=== PATIENT | female | born 1930 | race Caucasian/White ===

== ENCOUNTER → 2017-10-28 | Outpatient (CLI) | payer OTHER ==
[~2017-10-28] MED LIST: ADVIL100 M2 PO; APAP/CODEINE ELI5 M1; BACTRIM DS TAB1 EACH PO; CENTRUM SILVER1 EAC4 PO; PHENERGAN 25 MG25 MG PO; PREMARIN0.625 MG PO; STOOL SOFTENER100 MG PO; TRAMADOL 50 MG50 MG PO; TYLENOL325 MG PO; ULTRAM ER100 MG PO; VALIUM2 MG PO; ZOFRAN 4 MG ORAL4 MG PO
== END ==
LOC: ULTRA 14:38
DX: I70.213 Atherosclerosis of native arteries of extremities with intermittent claudication, bilateral legs (principal)

== ENCOUNTER 2018-10-15 13:08 | Inpatient (IN) | payer OTHER ==
[~2018-10-15] VITALS: Ht 160 cm; Wt 56.2 kg
[2018-10-15 13:08] VITALS: BP 131/78
[2018-10-15] MEDS ORDERED: ASPIR 8181 MG PO (13:16)
[2018-10-15] MEDS ORDERED: LIPITOR10 MG PO (13:17)
[2018-10-15 14:04] LABS: ABSOLUTE NEUTROPHILS 8.2 thou/uL (1.4-8.2); BASOPHILS 0.7 % (0.0-2.0); EOSINOPHILS 1.4 % (0.0-3.0); MCH 34.2 pg (26.0-34.0); MCV 100.7 fL (80.0-100.0); MONOCYTES 9.3 % (1.0-8.0); PLATELET COUNT 238 thou/uL (150-400); POLYS 78.6 % (36.0-66.0); RBC 4.37 mil/uL (4.20-5.00); RDW 13.1 % (10.5-14.5); WBC 10.5 thou/uL (4.0-11.0)
[2018-10-15 14:10] LABS: ANION GAP 9 mmol/L (7-16); BUN 14 mg/dL (7-18); CALCIUM 9.2 mg/dL (8.5-10.1); CHLORIDE 103 mmol/L (98-107); CO2 28 mmol/L (21-32); CREATININE 0.9 mg/dL (0.6-1.0); GLUCOSE 170 mg/dL (74-106); POTASSIUM 3.3 mmol/L (3.5-5.1); SODIUM 140 mmol/L (136-145)
[2018-10-15 14:19] LABS: ALBUMIN 3.3 g/dL (3.4-5.0); SGOT 18 U/L (15-37); SGPT 11 U/L (30-65); TOTAL BILIRUBIN 0.4 mg/dL (<0.1-1.0); TOTAL PROTEIN 7.1 g/dL (6.4-8.2); TROPONIN-I <0.06 ng/mL (<0.06)
[2018-10-15 15:23] VITALS: BP 131/78
[2018-10-15 16:11] VITALS: BP 133/76
[2018-10-15 16:15] LABS: URINE BILIRUBIN NEGATIVE (Negative); URINE CLARITY SLIGHTLY CLOUDY; URINE COLOR YELLOW; URINE GLUCOSE-RANDOM* NEGATIVE (Negative); URINE KETONES 1+ (Negative); URINE PROTEIN (DIPSTICK) 2+ (Negative); URINE SPECIFIC GRAVITY > 1.030 (1.005-1.035)
[2018-10-15 16:16] LABS: URINE BLOOD 3+ (Negative); URINE LEUKOCYTES-REFLEX 1+ (Negative); URINE NITRITE-REFLEX NEGATIVE (Negative); URINE UROBILINOGEN 0.2 E.U./dl (0.2-1.0)
[2018-10-15 16:22] LABS: BACTERIA-REFLEX >30 Many /HPF (None Seen); CASTS None Seen /LPF (None Seen); CRYSTALS None Seen /LPF (None Seen); SQUAMOUS 0-3 Few /LPF (0-3); URINE RBC 3-10 Few /HPF (0-2); URINE WBC-REFLEX 6-15 Few /HPF (0-5); YEAST-REFLEX Present (None Seen)
[2018-10-15 16:24] VITALS: BP 127/66
--- NOTE | 2018-10-15 18:31 | NUR ---
88 YO FEMALE ADMITTED TO 432 BY CART FROM ER. A&OX4, IV INTACT IN R AC. L SIDE FACE ABOVE EYE BROW HAS 9 SUTURES WITH SWELLING AND BRUISING. AMBULATES WITH ASSIST X1. PT ORIENTED TO ROOM/CALL LIGHT. PT TOLERATED DINNER TRAY, DENIES ANY NEED FOR PAIN MEDS. IV INFUSING CONT. FLUIDS AND ABX AT THIS TIME.
[2018-10-15 20:05] VITALS: BP 134/61
[2018-10-16 03:56] LABS: ALBUMIN 2.7 g/dL (3.4-5.0); CALCIUM 8.4 mg/dL (8.5-10.1); CREATININE 0.7 mg/dL (0.6-1.0); MAGNESIUM 1.7 mg/dL (1.8-2.4); POTASSIUM 3.2 mmol/L (3.5-5.1); TOTAL BILIRUBIN 0.3 mg/dL (<0.1-1.0); TOTAL PROTEIN 6.1 g/dL (6.4-8.2)
[2018-10-16 03:57] LABS: HEMATOCRIT 40.2 % (37.0-47.0); HEMOGLOBIN 13.2 gm/dL (12.0-15.0); MCH 33.6 pg (26.0-34.0); MCHC 32.9 g/dL (28.0-37.0); MCV 102.2 fL (80.0-100.0); RBC 3.93 mil/uL (4.20-5.00); WBC 8.6 thou/uL (4.0-11.0)
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
[2018-10-16 08:00] VITALS: BP 142/67
--- NOTE | 2018-10-16 08:48 | EKG ---
[place] [address] [facility] [place] [address] ELECTROCARDIOGRAM REPORT Name: MARITO CHEATHAM Room #: 432-P ADM IN M.R.#: [id number] Admission: 10/15/18 Attend Phys: Manuelito Michaels MD Discharge: Date of : 30 Report #: [id number] THIS REPORT FOR: //name// [facility] ED Test Date: 2018-10-15 Test Time: 13:50:13 Pat Name: MARITO CHEATHAM Department: Room: 432 Gender: F Supervisor Braiding: sylwia : 1930 Requested By: Swapna Vela Order Number: [id number] MD: Ramón Badillo Measurements Intervals [place] Rate: 103 P: 63 NE: 142 QRS: -62 QRSD: 98 T: 99 QT: 332 QTc: 435 Interpretive Statements Sinus tachycardia Atrial premature complexes Left anterior fascicular block Early R-wave progression Nonspecific T wave abnormality Compared to ECG 02/08/2015 07:58:13 no significant change was found Electronically Signed On 10-16-2018 8:48:21 MECHANICAL OXIDIZER by Ramón Badillo [email or web address] <ELECTRONICALLY SIGNED> By: Ramón Badillo MD, [facility] 10/16/18 0848 1350 1350 Ramón Badillo MD, [facility] /EPI
--- NOTE | 2018-10-16 15:22 | NUR ---
ASSESSMENT: CM REVIEWED CHART AND MET WITH PATIENT AND HER NEICE AT THE BEDSIDE. PT REPORTS SHE LIVES IN A HOUSE ALONE. PT REPORTS SHE IS VERY INDEPENDENT AND HAD BEEN WORKING OUT FOR YEARS. PT REPORTS SHE LIVES IN A HOUSE ALONE. PT REPORTS HAVING 2 STEPS TO ENTER THE HOME WITH NO HANDRAILS. PT REPORTS ONCE INSIDE SHE DOES NOT HAVE TO USE STEPS BUT DOES HAVE STEPS TO THE BASEMENT WHICH SHE DOES NOT GO DOWN TO. PT REPORTS HAVING A CANE AT HOME WELL A ROLLATER WALKER. PT REPORTS SHE HAS HAD [facility] IN THE PAST BUT NOT CURRENTLY. PT REPORTS SHE HAS NOT BEEN TO A SNF/REHAB. CM DISCUSSED ROLE AND RECOMMENDATION FOR POST ACUTE CARE. PT STATES HER HAD BEEN TO [facility] IN THE PAST AND WAS POSSIBLY INTERESTED IN THAT OR ACUTE REHAB. CM DISCUSSED HOW WE WOULD HAVE TO GET APPROVAL FROM INSURANCE. CM NOTIFIED ATTENDING THAT PATIENT IS INTERSTED IN ACUTE REHAB. CM WILL CONTINUE TO FOLLOW TO ASSIST NEEDED.
[2018-10-16 16:25] VITALS: BP 117/80
--- NOTE | 2018-10-16 18:17 | NUR ---
ASSUMED CARE OF PT AT 0700. ASSESSMENT COMPLETED. A&O,X4. NEURO CHECKS INTACT. DENIES N/V/D. C/O CHRONIC PAIN, PAIN MEDS GIVEN ORDERED. STITCHES INTACT LEFT EYEBROW, CHEEK ABRASION. NIECE AT BEDSIDE EARLIER TODAY. PT SLEPT MOST OF THE DAY, ACCORDING TO PT SHE USUALLY SLEEPS DURING THE DAY AT HOME. NO OTHER CHANGE IN STATUS.
[2018-10-16 19:46] VITALS: BP 141/70
[2018-10-17 04:40] VITALS: BP 116/63
--- NOTE | 2018-10-17 05:19 | NUR ---
ASSUMED PT CARE 1899. PT ALERT AND ORIENTED. IV DRESSING C/D/I, NO SIGNS OF INFILTRATION. STICHES OVER L EYE, WELL APPROXIMATED. BRUSINING TO L CHEEK. PT COMPLAINS OF CHRONIC PAIN, MANAGED WITH MEDICATION. PT ANXIOUS ABOUT GOIGN HOME, CONCERED SHE IS TOO WEAK. WILL CONTINUEPOC UNTIL EOS.
[2018-10-17 05:44] LABS: CALCIUM 8.1 mg/dL (8.5-10.1); CREATININE 0.6 mg/dL (0.6-1.0); MAGNESIUM 2.2 mg/dL (1.8-2.4); POTASSIUM 4.6 mmol/L (3.5-5.1)
[2018-10-17 07:45] VITALS: BP 126/59
--- NOTE | 2018-10-17 15:21 | NUR ---
ASSUMED CARE OF PT AT 0700. ASSESSMENT COMPLETED. A&O,X4. C/O GENERALIZED CHRONIC AND OVERALL WEAKNESS, PAIN MEDS GIVEN ORDERED. DENIES ANY OTHER CONCERNS. PT SLEEPS MOST OF THE DAY. PT/OT SAW PT, 1X ASSIST NEEDED. PT STATES SHE DOES NOT FEEL SAFE GOING HOME, LOOKING AT REHAB CHOICES. WILL CONTINUE TO MONITOR. PT IN STABLE CONDITION.
[2018-10-17 15:52] VITALS: BP 138/69
[2018-10-17 20:00] VITALS: BP 127/68
--- NOTE | 2018-10-18 04:21 | NUR ---
A/O, showing some anxiety, cooperative; c/o pain, pain medicationg given and worked; vss, afebrile, lab reviewd, will keep monitoring.
[2018-10-18 04:30] VITALS: BP 130/58
[2018-10-18 05:47] LABS: CALCIUM 8.2 mg/dL (8.5-10.1); CREATININE 0.7 mg/dL (0.6-1.0); POTASSIUM 4.2 mmol/L (3.5-5.1)
[2018-10-18 07:56] VITALS: BP 133/70
--- NOTE | 2018-10-18 14:58 | NUR ---
NOTIFIED DR CRUZ OF DENIAL FOR 5N AND HE WISHES TO DO A P-P. CALLED TO SCHEDULE WITH [facility] AND DR JOHNSON WILL CALL DR CRUZ BETWEEN [phone] TODAY. REF # [id number]. S/W PT TO ALERT OF THIS AND DISCUSSED SKILLED FACILITIES AND SHE IS INTERESTED IN [facility] IF 5N IS STILL DENIED. ASKED DC SCREEDMAN TO FAX REFERRAL TO [facility].
--- NOTE | 2018-10-18 15:09 | NUR ---
GROUNDS SUPERVISOR RECEIVED INSURANCE DENIAL FOR ACUTE REHAB STAY. PER ANA, PEER TO PEER CAN BE SCHEDULED BY CALLING . PEER TO PEER MUST BE SCHEDULED BY AT 1:00 PM STANDARD TIME. STRIKER OUT INFORMED.
--- NOTE | 2018-10-18 15:18 | NUR ---
FAXED REFERRAL TO [facility] SPOKE WITH EZIO IN ADM. SHE RECEIVED REFERRAL AND WILL REVIEW. DCP TO FOLLOW.
[2018-10-18 17:39] VITALS: BP 162/60
--- NOTE | 2018-10-18 18:16 | NUR ---
ASSUMED CARE OF PT AT 0700. ASSESSMENT COMPLETED. A&O,X4. C/O NECK PAIN, PAIN MEDS GIVEN ORDERED. HIGH FALL RISK DUE TO RECENT FALL AND WEAKNESS, BED ALARM ON, YELLOW SOCKS, AND WRISTBAND. DENIES ANY OTHER CONCERNS. VOIDING PER BEDSIDE COMMODE X1 ASSIST. PT BECAME CONFUSED AND FORGETFUL THIS EVENING. RIGHT FOREARM IV INFILTRATED, NEW RIGHT WRIST IV PLACED. PT TRANSFERED TO ROOM 224 VIA WHEELCHAIR IN STABLE CONDITION. BELONGINGS - CLOTHES, FERGUSON SENT WITH PT. IV ABX SENT WITH PT FOR NURSE TO HANG. PT LEFT AT 18:16 VIA TRANSPORTERS. FAMILY AWARE.
[2018-10-18 18:45] VITALS: BP 125/53
--- NOTE | 2018-10-18 19:23 | NUR ---
PATIENT TRANSFERRED FROM [facility], REPORT FROM [facility]/RN. PATIENT ALERT AND CAN BE FORGETFUL. PATIENT UP WITH ASSIST X 1 WITH CANE, DUE TO WEAKNESS FORM FALL. PATIENT HAS FACIAL CONTUSIONS WITH STITCHES LEFT EYE BROW. PATIENT C/O PAIN WITH ACTIVITY, 6/10 UPON ARRIVAL TO THE UNIT. WILL CONTINUE TO MONITOR.
[2018-10-18 19:50] VITALS: BP 137/88
--- NOTE | 2018-10-19 05:44 | NUR ---
Patient remains A&O to person, place and time w/ confusion. Swallows meds whole w/o difficulty. Remains cont. B&B; needs asst x 1 for ADLs/toileting needs. Remains on IVABT/UTI; no adverse reactions noted. 22 GA noted/intact to R wrist; infused ABT/flushed w/o difficulty. Stitches noted C/D/I to L eyebrow. Purplish - yellow bruising noted to L cheek r/t to recent fall at home. Non - productive cough noted. Patient remains non - compliant w/ utilizing call light for assistance, w/ toileting needs/transfers. Patient has no c/o pain or discomfort. No s/s of acute distress noted. PO fluids encouraged. Patient in bed resting w/ bed in low position and call light/desired belongings within reach. Will contiue to monitor.
[2018-10-19 08:30] VITALS: BP 122/77
--- NOTE | 2018-10-19 10:15 | NUR ---
MICHELLE reviewed chart and spoke with nursing. [facility] and is progressing towards goals for discharge. Insurance denied inpt acute rehab after peer to peer review. Referral sent to [facility]. conservation planner faxed updated clinical/therapy info and spoke with admissions. MICHELLE spoke with pt's niece, Alivia ([phone]), via phone to provide update. Alivia will update pt's son in [place]. Alivia is agreeable with discharge plan. Chart copy ordered. MICHELLE is following to assist as needed with discharge planning.
--- NOTE | 2018-10-19 11:25 | NUR ---
PATIENT CARE WAS ASSUMED AT 0715.PATIENT IS ALERT AND ORIENTED X4.PATIENT HAS SOME CONFUSION AT TIMES.PATIENT HAS NO PAIN AT THIS TIME.PATIENT CAN BE IMPULSIVE AT TIME WILL KEEP BED ALARM AND CHAIR ALARM ON WHEN UP.PATIENT'S VITALS ARE STABLE.IV IS INTACT, AND PATENT.CALL LIGHT,PHONE, AND PERSONAL BELONGINGS ARE WITHIN REACH.WILL CONTINUE TO MONITOR PATIENT.
[2018-10-19] MEDS ORDERED: LEVAQUIN 750 M750 MG PO (14:09)
[2018-10-19] MEDS ORDERED: TRAMADOL 50 MG50 MG PO (14:11)
[2018-10-19] MEDS ORDERED: IPRAT-ALBUT 0.5-3 ML INH (14:11)
[2018-10-19] MEDS ORDERED: ROBITUSSIN100 MG/53 PO (14:13)
--- NOTE | 2018-10-19 14:54 | NUR ---
DISCHARGE ORDERS RECEIVED. PATIENT DISCHARGING TO [facility]. CHART COPIED PER MARKET RISK SPECIALIST. ORDERS FAXED TO [facility], VERIFIED RECEIVED. WHEELCHAIR TRANSPORT SET FOR 1545 HOURS. RUPERTO GARCIA, NOTIFIED OF DISCHARGE PLAN AND TIME OF TRANSPORT. UNIT RN NOTIFIED AND CONTACT NUMBER PROVIDED FOR REPORT. UNIT CM/SW AWARE.
--- NOTE | 2018-10-19 17:09 | NUR ---
PATIENT WAS DISCHARGE TO GO TO [facility].PATIENT'S FAMILY IS AWARE OF TRANSFER BUT NOT OF THE TIME.PT IS IN STABLE CONDITION.IV WAS TAKEN OUT.PATIENT HAS TRANSPORTATION TO SNF VIA [facility].PATIENT HAS ALL PERSONAL BELONGINGS, AND PAPERWORK FOR D/C.REPORT WAS CALLED IN TO THE NURSE FOR [facility]
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
--- NOTE | 2018-10-24 23:38 | H ---
[facility] [place] [address] HISTORY AND PHYSICAL Name: CHEATHAMMARITO ANN Room #: 224-P [facility] IN M.R.#: [id number] Admission: 10/15/18 Attend Phys: Manuelito Michaels MD Discharge: 10/19/18 Date of : 30 Report #: [id number] THIS REPORT FOR: //name// CC: Manuelito Michaels DATE OF SERVICE: 10/15/2018 CHIEF COMPLAINT: Fall with closed head injury. HISTORY OF PRESENT ILLNESS: The patient reported that she had been developing a cold for several days and had not been feeling well. She was walking across a carpet in her den when she tripped and fell hitting the head on her carpet and that her eyeglasses cut her face. She reports generalized weakness, leg weakness, productive cough and runny nose from her cold. She denies chest pain, shortness of breath or syncope before the fall. She assumes that she tripped, because she does not remember any specific event. She just remembers falling toward the carpeted floor. She came to the Emergency Room where a 3 cm laceration over the left eyebrow was sutured and evaluation performed. She was too weak to get up and walk while in the Emergency Room. She was too unsteady on her feet to attempt walking. She was brought to the hospital by the EMS service. She has not had any recent difficulties with falls or weakness. She has a history of breast cancer twice, one in each breast, treated with simple lumpectomies. She has chronic back pain controlled with tramadol, right knee surgery in 06/1996, generalized arthritis, hysterectomy and elevated lipids. MEDICATIONS: Chronic tramadol 4 pills any average day controls her chronic back pain, this dose has remained unchanged for several years. Atorvastatin 10 mg daily for elevated cholesterol. She uses Tretinoin cream, thin film on her face several times weekly. In the past, she has used diclofenac gel for pain. She tried several different doses of estrogen replacement over the last several months and is most comfortable on Premarin 0.625 mg that she has taken ever since her hysterectomy perhaps 50 years ago. ALLERGIES: SHE LISTED METHYLPREDNISOLONE A CAUSE OF HER BALANCE AND FALLS ON 11/14/2014 AND A RASH FROM AMOXICILLIN/CLAVULANIC ACID THE SAME DAY. SOCIAL HISTORY: She lives alone in her own home. She does not drink nor smoke. She does have a "life alert" emergency system that she activated to call the paramedics. [address] [address] HISTORY AND PHYSICAL Name: MARITO CHEATHAM WILLIS Room #: 224-P DIS IN .R.#: [id number] Admission: 10/15/18 Attend Phys: Manuelito Michaels MD Discharge: 10/19/18 Date of : 30 Report #: [id number] She wishes a full code blue. REVIEW OF SYSTEMS: She has had cough with productive sputum, runny nose and malaise for several days as well as generalized weakness. She has not been eating or drinking as well as usual. Her only complaint of pain from the fall is the left side of her face and no pain on either the left or the right side of her body. She denies shortness of breath or chest pain or blackout spell preceding the fall. There is no nausea, vomiting, diarrhea or constipation. She denies urinary frequency or burning or dysuria. She denied unusual back pain, joint pain or muscle pain from the fall. She does have chronic back pain and has been out of her tramadol prescription for 3 or 4 days. She has pain from the injury to the left side of her face, but no other headache. She reports that the vision in both eyes is intact and unchanged from the fall. OBJECTIVE: GENERAL: Exam shows an 88-year-old white female appearing 10 years younger than her stated age. She is awake, alert and oriented. HEENT: PERRLA and extraocular movements are intact. Palpation of the nasal bones, cheek bones and the orbital rims shows no abnormal movement or fractures present. There is a recently sutured laceration over the left eyebrow and abrasions around the left side of the face. NECK: Negative and supple. Skeletal survey by palpation shows no unusual tenderness or discomfort. LUNGS: Clear. CARDIOVASCULAR: Heart tones are normal. ABDOMEN: Soft and nontender without hepatosplenomegaly or masses. EXTREMITIES: There is no edema present. NEUROLOGIC: Screening neurological examination is intact. I did not attempt to get her up and walking. LABORATORY DATA: Urinalysis is abnormal with white blood cells, red blood cells and bacteria. Potassium is low at 3.3. Albumin is low at 3.3. WBCs are normal at 10.5 thousand and hemoglobin is 15.0, which is hemoconcentrated compared to several years ago. MCV is 100.7, which is close to baseline for her. Urine is concentrated with a specific gravity greater than 1.030. Chest x-ray is unremarkable. CT of the head was negative and no significant abnormalities were seen in the visualized portions of the facial bones. ASSESSMENT: 1. Weakness that led to a fall. 2. Volume depletion. 3. Hypokalemia. 4. Left eyebrow laceration and facial contusions. 5. Unstable balance. [facility] [address] [place] [address] HISTORY AND PHYSICAL Name: MARITO CHEATHAM Room #: 224-P [facility] IN [facility].#: [id number] Admission: 10/15/18 Attend Phys: Manuelito Michaels MD Discharge: 10/19/18 Date of : 30 Report #: [id number] 6. Generalized weakness. 7. Abnormal UA / UTI 8. Other medical problems as in the history and physical. PLAN: The patient is unable to go home, she is unable to walk. She will be given intravenous fluids to correct her intravascular volume deficit. She will be given potassium to replace her low potassium. Serial neuro checks will be obtained. Physical therapy and occupational therapy consultations will be obtained. general sales manager assistance will be obtained. A CT scan of the facial bones will be performed. Empiric antibiotics started for the abnormal urinalysis while the culture is pending. She wishes a full code blue. <ELECTRONICALLY SIGNED> By: Manuelito Michaels MD 10/24/18 2338 2041 2136 Manuelito Michaels MD /nt
== END 2018-10-19 17:19 | DRG 987 ==
LOC: ER 13:08 → EROBS 15:26 → 4E 15:26 → SICU 10-18 18:31
PROVIDERS: Nurse Practitioner Family; ADMIT Internal Medicine
PROC: 0JQ10ZZ Repair Face Subcutaneous Tissue and Fascia, Open Approach (ICD-10-PCS; principal; 2018-10-15)
DX: S01.112A Laceration without foreign body of left eyelid and periocular area, initial encounter (principal); E43 Unspecified severe protein-calorie malnutrition; N39.0 Urinary tract infection, site not specified; M19.90 Unspecified osteoarthritis, unspecified site; S09.90XA Unspecified injury of head, initial encounter; E86.9 Volume depletion, unspecified; Z60.2 Problems related to living alone; E87.6 Hypokalemia; J32.9 Chronic sinusitis, unspecified; E83.42 Hypomagnesemia; J20.8 Acute bronchitis due to other specified organisms; B96.20 Unspecified Escherichia coli [E. coli] as the cause of diseases classified elsewhere; Z90.710 Acquired absence of both cervix and uterus; Z88.8 Allergy status to other drugs, medicaments and biological substances; Z88.1 Allergy status to other antibiotic agents; Z68.22 Body mass index [BMI] 22.0-22.9, adult; Z85.3 Personal history of malignant neoplasm of breast; Z79.82 Long term (current) use of aspirin; Z79.899 Other long term (current) drug therapy; Z23 Encounter for immunization; W01.0XXA Fall on same level from slipping, tripping and stumbling without subsequent striking against object, initial encounter; Y93.89 Activity, other specified; Y92.89 Other specified places as the place of occurrence of the external cause; Y99.8 Other external cause status
CPT/HCPCS: 10084; 15002

== ENCOUNTER 2018-10-24 06:52 | Inpatient (IN) | payer OTHER ==
[~2018-10-24] VITALS: Ht 160 cm; Wt 63.5 kg
--- NOTE | ~2018-10-24 | H ---
[facility] [place] [address] HISTORY AND PHYSICAL Name: MARITO CHEATHAM WILLIS Room #: 463-P ADM IN M.R.#: [id number] Admission: 10/24/18 Attend Phys: Manuelito Michaels MD Discharge: Date of : 30 Report #: [id number] THIS REPORT FOR: //name// CC: Jewell Michaels DATE OF SERVICE: 10/24/2018 CHIEF COMPLAINT: Swelling in the tongue and sore throat. HISTORY OF PRESENT ILLNESS: Information is obtained from the patient and from the Emergency Room physician's hospital record. The patient reports beginning to have a sore throat approximately 2 weeks ago. She fell at home on 10/15/2018, hitting a carpeted floor with the left side of her face in an unprotected fall with some characteristics of profound instantaneous syncope with profound instantaneous loss of consciousness. She required suturing of laceration over her eyebrow and evaluations as detailed in the dictated discharge summary and [facility]. At the jail facility, she continued to have sore throat, but that her tongue began to swell last night prior to coming to the hospital early this morning . She noticed that her neck was painful with movement and that her speech was altered with the tongue swelling. Moving her neck caused her neck to hurt. She was able to breathe but reports that breathing is more difficult than usual. [facility] her to the [facility] Room where the emergency room physician found on exam that her tongue was indeed swollen, although only mild to moderately so. There was mild trismus with tightness of the muscles of mastication. Mild uveitis present and the rest of her HEENT exam was normal. Soft tissue technique CT scanning of the neck with contrast was significant and that the tongue was normal but there was bilateral ethmoid sinus infection, sinusitis with air fluid levels. Emergency admission to the hospital is indicated. Treatment with intravenous corticosteroids was initiated in the Emergency Room after discussion with the ENT physician, Dr. Gurrola. The patient feels that it was her tramadol that caused swelling in her throat and swelling of her tongue. She noted that after having fallen and hit her face on Sep, she has been taking more than her usual. She initially used to taking 4 or 6 per day. She had been taking more up until her tongue started to swell. She says tramadol tablets were of different color and size and shape than what she is used to. Medications: At the jail [facility], she has been taking the following medications: Lactobacillus 1 capsule once daily, aspirin 81 mg daily, conjugated estrogen 0.625 mg daily, guaifenesin cough syrup as needed, ipratropium, albuterol by nebulizer every 4 hours as needed for shortness of breath and wheezing, [address] [address] HISTORY AND PHYSICAL Name: MARITO CHEATHAM WILLIS Room #: 463-P ADM IN M.R.#: [id number] Admission: 10/24/18 Attend Phys: Manuelito Michaels MD Discharge: Date of : 30 Report #: [id number] ipratropium/albuterol 1 vial every morning and at bedtime for breathing, levofloxacin 750 mg by mouth once daily for UTI, lidocaine patch to the affected areas every morning and at bedtime, atorvastatin 10 mg at bedtime for elevated cholesterol, multiple vitamin tablet daily, tramadol 50 mg or 100 mg every 4 hours as needed for pain, Tylenol 325 mg 1 by mouth every 4 hours as needed for mild pain or elevated temperature. ALLERGIES: METHYLPREDNISOLONE pack in 2013 has led to dizziness persisting ever since then she reports. She is also allergic to AUGMENTIN taken about the same time. SOCIAL HISTORY: She lives alone in her own home. She does not drink nor smoke. Her friends report that she seems to be having more difficulties in adequately taking care of herself at home. A complete review of systems is negative except for the HPI above in the HPI per recent difficulties. PHYSICAL EXAMINATION: GENERAL: She is awake and alert in the hospital bed at the time of my examination. HEENT: There are a few white patches, not quite characteristic for thrush. The right lower lip has a crust, as if a herpes lesion had recently healed. The uvula is slightly swollen and mildly enlarged. She is able to eat, drink and swallow without difficulty. Posterior pharynx is normal in size and shape. The tongue is not really enlarged at the time of my examination. The laceration of the left eyebrow is healing. The rest of the HEENT exam is unremarkable. CT scan shows acute sinusitis of the ethmoid and sphenoid sinuses. Also cervical spine disease and scoliosis. WBCs are 15,000 with a left shift showing a stress response, or to an infection. IMPRESSION: 1. The patient had difficulty in swallowing, and the tongue was enlarged in the ER along with some tightening of the muscles of mastication. Angioedema was not described. The condition has responded to IV decadron. The differential favors reaction to a medication, but could be sinusitis or perhaps thrush or viral pharyngitis. 2. Sinusitis, acute. 3. She showed sinus tachycardia during the exam. 4. Recent fall with eyebrow laceration and left face bruising 5. Recently having signs of not doing well at home. 6. Recent UTI treated at the [facility] with 750 mg levofloxacin where 250 mg is adequate. [facility] [place] [address] HISTORY AND PHYSICAL Name: MARITO CHEATHAM WILLIS Room #: 463-P ADM IN M.R.#: [id number] Admission: 10/24/18 Attend Phys: Manuelito Michaels MD Discharge: Date of : 30 Report #: [id number] 7. Chronic back pain well managed with 4 tramadol daily in the past. 8. Degenerative spine disease. She is being treated with intravenous Decadron and antihistamines. She desires a full code blue. She was examined 10 hours after she came to the Emergency Room and has been steadily improving since then. The plan is to return to the SNF. An alternative to tramadol for back pain is needed. The laceration above her eyebrow looks to be healing satisfactorily and removing of those sutures will be addressed. By: 0020 0117 Manuelito Michaels MD /nt
[~2018-10-24 06:52] MED LIST changes: +ASPIR 8181 MG PO; +IPRAT-ALBUT 0.5-3 ML INH; +LEVAQUIN 750 M750 MG PO; +LIPITOR10 MG PO; +ROBITUSSIN100 MG/53 PO
[2018-10-24 06:55] VITALS: BP 133/88
[2018-10-24 07:19] LABS: ABSOLUTE NEUTROPHILS 12.8 thou/uL (1.4-8.2); BASOPHILS 0.9 % (0.0-2.0); EOSINOPHILS 0.1 % (0.0-3.0); HEMATOCRIT 41.6 % (37.0-47.0); HEMOGLOBIN 14.5 gm/dL (12.0-15.0); LYMPHOCYTES 7.9 % (24.0-44.0); MCH 34.4 pg (26.0-34.0); MCHC 34.9 g/dL (28.0-37.0); MCV 98.5 fL (80.0-100.0); MONOCYTES 7.3 % (1.0-8.0); PLATELET COUNT 315 thou/uL (150-400); POLYS 83.8 % (36.0-66.0); RBC 4.23 mil/uL (4.20-5.00); RDW 12.6 % (10.5-14.5); WBC 15.3 thou/uL (4.0-11.0)
[2018-10-24 07:28] LABS: ANION GAP 11 mmol/L (7-16); BUN 19 mg/dL (7-18); CALCIUM 9.7 mg/dL (8.5-10.1); CHLORIDE 97 mmol/L (98-107); CO2 28 mmol/L (21-32); CREATININE 0.8 mg/dL (0.6-1.0); GLUCOSE 123 mg/dL (74-106); POTASSIUM 3.5 mmol/L (3.5-5.1); SODIUM 136 mmol/L (136-145)
[2018-10-24 07:36] LABS: ALBUMIN 2.9 g/dL (3.4-5.0); MAGNESIUM 1.8 mg/dL (1.8-2.4); SGOT 13 U/L (15-37); SGPT 12 U/L (30-65); TOTAL BILIRUBIN 0.6 mg/dL (<0.1-1.0); TOTAL PROTEIN 7.6 g/dL (6.4-8.2); TROPONIN-I <0.06 ng/mL (<0.06)
[2018-10-24] MEDS ORDERED: VOLTAREN GEL 1100 G2 TOP (07:53)
[2018-10-24] MEDS ORDERED: TRAMADOL 50 MG50 MG PO (07:53)
--- NOTE | 2018-10-24 08:25 | EKG ---
[place] [address] [facility] [place] [address] ELECTROCARDIOGRAM REPORT Name: MARITO CHEATHAM Room #: REG Thuan#: [id number] Admission: 10/24/18 Attend Phys: Discharge: Date of : 30 Report #: [id number] THIS REPORT FOR: //name// [facility] ED Test Date: 2018-10-24 Test Time: 07:18:21 Pat Name: MARITO CHEATHAM Department: Room: Gender: F Breakdown Man: delicia : 1930 Requested By: Thomas Evans Order Number: [id number] MD: Luis Alberto Tai Measurements Intervals [place] Rate: 114 P: 45 OK: 147 QRS: -60 QRSD: 98 T: 92 QT: 343 QTc: 473 Interpretive Statements Sinus tachycardia Left anterior fascicular block Abnormal R-wave progression, early transition LVH with secondary repolarization abnormality Compared to ECG 10/15/2018 13:50:13 Electronically Signed On 10-24-2018 8:25:35 [employer] BPM ARCHITECT by Luis Alberto Tai [email or web address] <ELECTRONICALLY SIGNED> By: Luis Alberto Tai MD 10/24/18 0825 7 7 Luis Alberto Tai MD /MALINDA
[2018-10-24 09:13] LABS: URINE BILIRUBIN NEGATIVE (Negative); URINE BLOOD 1+ (Negative); URINE CLARITY CLEAR; URINE COLOR YELLOW; URINE GLUCOSE-RANDOM* NEGATIVE (Negative); URINE KETONES 1+ (Negative); URINE LEUKOCYTES-REFLEX NEGATIVE (Negative); URINE NITRITE-REFLEX NEGATIVE (Negative); URINE PROTEIN (DIPSTICK) NEGATIVE (Negative); URINE SPECIFIC GRAVITY <= 1.005 (1.005-1.035); URINE UROBILINOGEN 0.2 E.U./dl (0.2-1.0)
[2018-10-24 09:20] LABS: SQUAMOUS >10 Many /LPF (0-3)
[2018-10-24 09:21] LABS: BACTERIA-REFLEX 1-9 Few /HPF (None Seen); CASTS None Seen /LPF (None Seen); CRYSTALS None Seen /LPF (None Seen); URINE RBC 3-10 Few /HPF (0-2); URINE WBC-REFLEX 0-5 Rare /HPF (0-5)
[2018-10-24 09:53] VITALS: BP 146/62
--- NOTE | 2018-10-24 09:54 | NUR ---
BALDOM[facility] ([facility]) - [phone]
[2018-10-24 09:58] VITALS: BP 114/76
[2018-10-24 10:15] VITALS: BP 143/70
[2018-10-24] MEDS ORDERED: LEVAQUIN 750 M750 MG PO (11:06)
--- NOTE | 2018-10-24 12:53 | NUR ---
ADM PT CAME IN FROM ER. PT ORIENTED TO ROOM. ADM ORDERS CARRIED OUT. PRIMARY PHYSICIAN NOTIFIED.
--- NOTE | 2018-10-24 15:36 | NUR ---
PT ADMITTED RELATED TO AUTE SINUSITIS AND TONGUE SWELLING. CM REVIEWED CHART AND SPOKE WITH CARE TEAM. CM MET WITH PT AT BEDSIDE THIS DAY. PT INDICATED SHE HAD BEEN AT [facility] FOR SKILLED REHAB AND THAT SHE ANTICPATES RETURNING THERE ONCE MEDICALLY STABLE. CM CALLED PT'S NIECE RUPERTO NOVAK AND SHE INDICATED THAT PT HAS SON [facility] . SHE INDICATED THAT YES THEY WOULD ANTIPATE PT RETURNING TO [facility] ONCE MEDICALLY STABLE. PT HAD BEEN LIVING IN HOUSE ALONE WITH 2 STEPS TO ENTER AND NO STEPS SHE USES INSIDE CONTINUOUS PROCESS TANNER ROTARY DRUM LAST ADMISSION. PT HAD CANE ADN ROLLATOR WALKER. CLINICAL UPDATE SENT TO [facility].
[2018-10-24 15:55] VITALS: BP 132/81
[2018-10-24 19:41] VITALS: BP 106/62
--- NOTE | 2018-10-25 04:02 | NUR ---
Pt. rested very little during the night when checked on during frequent rounds. She became confused during the night and pushed her 911 necklace. Pt. thought someone was coming in through the garage and knocking. She knew she was at the hospital, but also thought she was at home. Pt. offers no c/o pain. Up to the bedside comode with gait belt and assist of one. Bed alarm is on.
[2018-10-25 04:10] VITALS: BP 128/61
[2018-10-25 06:07] LABS: HEMOGLOBIN 13.6 gm/dL (12.0-15.0); MCH 34.2 pg (26.0-34.0); MCHC 34.7 g/dL (28.0-37.0); MCV 98.4 fL (80.0-100.0); RBC 3.96 mil/uL (4.20-5.00); RDW 12.7 % (10.5-14.5); WBC 11.8 thou/uL (4.0-11.0)
[2018-10-25 06:24] LABS: ALBUMIN 2.5 g/dL (3.4-5.0); CALCIUM 9.8 mg/dL (8.5-10.1); CREATININE 0.7 mg/dL (0.6-1.0); POTASSIUM 3.4 mmol/L (3.5-5.1); TOTAL BILIRUBIN 0.4 mg/dL (<0.1-1.0); TOTAL PROTEIN 6.9 g/dL (6.4-8.2)
[2018-10-25 07:57] VITALS: BP 128/62
--- NOTE | 2018-10-25 12:36 | NUR ---
DISCHARGE PLANNING. ANTICIPATED DISCHARGE BACK TO [facility] ONCE MEDICALLY READY. UPDATED CLINICAL INFORMATION FAXED TO [facility], [facility] ADMISSIONS, VERIFIED RECEIVED. FOLLOWING TO ASSIST WITH DISCHARGE NEEDS.
[2018-10-25 14:40] VITALS: BP 137/70
[2018-10-25 19:28] VITALS: BP 135/75
[2018-10-26 03:19] VITALS: BP 152/87
--- NOTE | 2018-10-26 03:57 | NUR ---
patient aox1 confused and forgetful. patient denied pain or discomfort. patient calm and cooperative with meds and care. patient in bed asleep at this time breathing regular and unlaboured.
[2018-10-26 05:30] LABS: CALCIUM 9.6 mg/dL (8.5-10.1); CREATININE 0.6 mg/dL (0.6-1.0)
[2018-10-26 05:39] LABS: POTASSIUM 4.1 mmol/L (3.5-5.1)
[2018-10-26 07:45] VITALS: BP 154/85
--- NOTE | 2018-10-26 10:00 | HC ---
[facility] [address] CONSULTATION Name: MARITO CHEATHAM WILLIS Room #: 463-P ADM IN M.R.#: [id number] Admission: 10/24/18 Attend Phys: Manuelito Michaels MD Discharge: Date of : 30 Report #: [id number] THIS REPORT FOR: //name// CC: Jewell Theodorakatherine Manuelito Michaels DATE OF SERVICE: 10/25/2018 ATTENDING PHYSICIAN: Manuelito Michaels MD REASON FOR CONSULTATION: Tongue swelling and sinusitis. HISTORY OF PRESENT ILLNESS: The patient is an 88-year-old white woman who started our visit by telling me she needs cough medication. I tried to introduce myself again and she tells me how come you do not know what cough medications are. At this point in time, I asked her to please quietly listen to what I have to tell her and she appears to pay some attention to my request. Anyhow, the patient is deemed to be a poor historian. The patient's nursing report, the patient is confused and requesting that the garage door be closed. Actually she is in the hospital at the present time. I query her as to why she is in the hospital now and she tells me because she fell, actually that was the happening that promoted the previous admission. At this time, the patient is admitted with a history of tongue swelling related to possibly "incorrect medication given by nursing" at the half-way facility. The patient tells me she knows what Ultram tablets look like and she was given a larger pill. Consequently, she blames that medication as to the cause of her tongue swelling. The patient presently in no distress, though she obviously has a nasal type voice. She is complaining that her tongue is red. Actually when I examined her mouth, the tongue is neither red nor swollen. PAST MEDICAL HISTORY: Recent closed head injury secondary to syncopal episode resulting in left forehead laceration requiring sutures, actually stitches still in place. Breast cancer twice on each breast treated with lumpectomies. Chronic back pain treated with tramadol. Previous knee surgery. Hysterectomy. Dyslipidemia. DRUG ALLERGIES: AUGMENTIN AND METHYLPREDNISOLONE. MEDICATIONS: The patient is on aspirin, lidocaine patch, estrogen orally, potassium chloride supplementation, dexamethasone IV and metoprolol succinate. The patient has received ceftriaxone during the previous hospitalization from 10/15 to 10/19. Subsequently Levaquin 750 mg p.o. daily. She did receive clindamycin single dose in the ER on the date of admission. SOCIAL HISTORY: , one 60-year-old son that does [place] [address] CONSULTATION Name: MARITO CHEATHAM WILLIS Room #: 463-P [facility] IN .R.#: [id number] Admission: 10/24/18 Attend Phys: Manuelito Michaels MD Discharge: Date of : 30 Report #: [id number] not know this patient's mental status and abilities to communicate from previously. Consequently can say not much about that. REVIEW OF SYSTEMS: Swelling of the tongue has resolved. Complaining of some redness of the tongue and swelling of the tongue that is better. Though she sounds nasally congested, she voices no complaints regarding that. PHYSICAL EXAMINATION: GENERAL: Elderly woman, confused, poor historian, afebrile since admission. VITAL SIGNS: Temperature 97.4, pulse 79, respirations 15 and BP 128/62. Height 5 feet 3 inches and weight 130 pounds. HEENMT: Head normocephalic. Laceration on left forehead at the eyebrow level with sutures in place that must be removed. She has artificial eye lashes on the right eyelid and the ones on the left eyelids were removed I suspect during the trauma. Mouth with no abnormalities. No redness of the tongue. No swelling of the tongue. No pharyngeal exudate. Note is made that she had reported sore throat of 2 weeks' duration. NECK: Supple and no thyromegaly. LUNGS: Clear to auscultation. BREASTS: Deferred. HEART: S1, S2. No gallop or murmur. ABDOMEN: Soft, no masses or megaly. EXTREMITIES: Normal. NEUROLOGIC: Grossly within normal limits with the exception of inability to provide a proper medical history and some confusion. LABORATORY DATA: Hypokalemia of 3.4 millimoles per liter is noted, BUN 19, creatinine 0.7 and glucose 166. Hypoalbuminemia of 2.5 g/dL noted. CBC on admission revealed elevated WBC of 15,300, hemoglobin 14.5 g/dL and platelets 315,000. The white blood cell count differential revealed 83% segmented neutrophils. Repeat WBC today is 11.8 g/dL. TSH normal. Urinalysis yesterday revealed positive ketones, positive blood, greater than 10 squamous epithelial cells indicating vaginal contamination. Microscopic hematuria and bacteriuria. Note is made on 10/15, the patient had funguria. MICROBIOLOGY DATA: On 10/15, urine culture revealed greater than 100,000 colonies of E. coli sensitive to most tested antibiotics, but ampicillin. RADIOLOGY EVALUATION: Soft tissues of the neck revealed no obvious abnormalities on the CT scan of the neck and face. Note is made she has chronic and possibly acute maxillary ethmoidal and sphenoidal sinusitis with some air fluid levels. Chest x-ray is negative. The findings of chronic sinusitis and fluid levels were present on previous CT scan dated 10/17/2018. ASSESSMENT: 1. Chronic and question acute sinusitis, question viral versus bacterial. [facility] [address] [place] [address] CONSULTATION Name: MARITO CHEATHAM WILLIS Room #: 463-P ADM IN M.R.#: [id number] Admission: 10/24/18 Attend Phys: Manuelito Michaels MD Discharge: Date of : 30 Report #: [id number] Suspect the latter. 2. Swelling of tongue, question related to medication. 3. Confusional status, question etiology, entertain possibility of this being related to Levaquin. 4. History of breast cancer. 5. Hypoalbuminemia. SUGGESTIONS: Discussed the patient's situation with her nurse and with Dr. Manuelito Michaels. Currently, I recommend no antibiotics. Possibly the patient may need to continue with systemic steroids, discontinue the intravenous route of administration and consider low dose prednisone for 3-4 more days. 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 Dr. Michaels, thank you for requesting my suggestions. <ELECTRONICALLY SIGNED> By: Bernardino Tai MD 10/26/18 1000 1142 2116 Bernardino Tai MD /nt
--- NOTE | 2018-10-26 13:51 | NUR ---
TOWARDS POC ASSUME CARE AT 0700. VSS, AFEBRILE. PT IS CONFUSED AT TIMES BUT CALM AND COOPERATIVE. DENIES PAIN. NO CONCERNS VOICED. CALL LIGHT WITHIN REACHED. FALL RISK IN PLACE. WILL CONTINUE TO MONITOR.
--- NOTE | 2018-10-26 13:52 | 2DMMODE ---
[facility] [address] [place] [address] 2 D/M-MODE ECHOCARDIOGRAM Name: MARITO CHEATHAM Room #: 463-P ADM IN M.R.#: [id number] Admission: 10/24/18 Attend Phys: Manuelito Michaels, Discharge: Date of : 30 Date of Service: 10/26/18 1351 Report #: [id number] THIS REPORT FOR: //name// APPROVED REPORT Study performed: 10/26/2018 12:57:26 EXAM: Comprehensive 2D, Doppler, and color-flow Echocardiogram Patient Location: Echo lab Room #: 463 Status: routine BSA: 1.61 HR: 110 bpm BP: 154/85 mmHg Rhythm: Tachycardia/Irregular Other Information Study Quality: Adequate/low parasternal window. Indications SVT. 2D Dimensions RVDd: 26.45 mm IVSd: 13.00 (7-11mm) LVOT Diam: 19.53 (18-24mm) LVDd: 28.81 mm PWd: 13.00 (7-11mm) Ascending Ao: 26.09 (22-36mm) LVDs: 20.60 (25-40mm) Aortic Root: 29.56 mm Volumes Left Atrial Volume (Systole) Single Plane 4CH: 21.36 mL Single Plane 2CH: 33.11 mL Aortic Valve AoV Peak Suman.: 2.58 m/s AO Peak Gr.: 26.53 mmHg LVOT Max P.24 mmHg AO Mean Gr.: 14.92 mmHg AO V2 Mean: 1.83 m/s LVOT Max V: 0.90 m/s AO V2 VTI: 46.08 cm BRIGID Vmax: 1.05 cm2 Mitral Valve E/A Ratio: 0.5 MV Decel. Time: 237.45 ms [facility] [address] [place] [address] 2 D/M-MODE ECHOCARDIOGRAM Name: MARITO CHEATHAM [facility] Room #: 463-P ADM IN M.R.#: [id number] Admission: 10/24/18 Attend Phys: Manuelito Michaels, Discharge: Date of : 30 Date of Service: 10/26/18 1351 Report #: [id number] MV E Max Suman.: 0.71 m/s MV A Suman.: 1.30 m/s MV PHT: 68.86 ms IVRT: 96.89 ms Pulmonary Vein P Vein S: 0.66 m/s P Vein A: 0.44 m/s P Vein D: 0.39 m/s P Vein S/D Ratio: 1.69 Tricuspid Valve TR Peak Suman.: 2.61 m/s RAP Estimate: 5.00 mmHg TR Peak Gr.: 27.27 mmHg PA Pressure: 32.00 mmHg Left Ventricle The left ventricle is normal size. Regional wall motion is not well visualized but grossly normal. Mild concentric left ventricular hypertrophy. Left ventricular systolic function is normal. LVEF is 55%. Mild diastolic dysfunction is present (impaired relaxation pattern). Right Ventricle The right ventricle is normal size. The right ventricular systolic function is normal. Atria The left atrium size is normal. The right atrium size is normal. Aortic Valve The aortic valve is not well visualized but is moderately calcified. Moderate aortic valve stenosis. Mild aortic regurgitation. Calculated aortic valve area is 1.0 cm2 with maximum pressure gradient of 27 mmHg and mean pressure gradient of 15 mmHg. Mitral Valve Mild mitral annular calcification. Mild mitral regurgitation. No evidence of mitral valve stenosis. Tricuspid Valve The tricuspid valve is normal in structure. Moderate tricuspid regurgitation. Estimated PAP is 30-35mmHg. Pulmonic Valve Pulmonic valve is poorly visualized. [facility] [address] [place] [address] 2 D/M-MODE ECHOCARDIOGRAM Name: MARITO CHEATHAM [facility] Room #: 463-P [facility] IN [facility]#: [id number] Admission: 10/24/18 Attend Phys: Manuelito Michaels, Discharge: Date of : 30 Date of Service: 10/26/18 1351 Report #: [id number] Great Vessels The aortic root is normal in size. The ascending aorta is normal in size. IVC is normal in size and collapses >50% with inspiration. Pericardium There is no pericardial effusion. <Conclusion> Left ventricular systolic function is normal. LVEF is 55%. Mild diastolic dysfunction The aortic valve is not well visualized but is moderately calcified. Moderate aortic valve stenosis. Calculated aortic valve area is 1.0 cm2 with maximum pressure gradient of 27 mmHg and mean pressure gradient of 15 mmHg. Mild aortic regurgitation. Mild mitral annular calcification. Mild mitral regurgitation. Moderate tricuspid regurgitation. Estimated pulmonary artery pressure of 30-35mmHg. There is no pericardial effusion. <ELECTRONICALLY SIGNED> By: Ramón Badillo MD, [facility] 10/26/18 1351 1351 1351 Ramón Badillo MD, FACC /INF
[2018-10-26 15:25] VITALS: BP 124/49
--- NOTE | 2018-10-26 15:54 | NUR ---
[facility] FAXED CURRENT PT/OT NOTES TO [facility] SPOKE WITH [facility] IN ADM. AND SHE RECEIVED THERAPY NOTES AND WILL SUBMIT FOR AUTH.
[2018-10-26 19:12] VITALS: BP 147/72
[2018-10-26 22:51] LABS: URINE BILIRUBIN NEGATIVE (Negative); URINE BLOOD TRACE (Negative); URINE CLARITY CLEAR; URINE COLOR YELLOW; URINE GLUCOSE-RANDOM* NEGATIVE (Negative); URINE KETONES NEGATIVE (Negative); URINE LEUKOCYTES-REFLEX NEGATIVE (Negative); URINE NITRITE-REFLEX NEGATIVE (Negative); URINE PROTEIN (DIPSTICK) NEGATIVE (Negative); URINE SPECIFIC GRAVITY 1.025 (1.005-1.035); URINE UROBILINOGEN 0.2 E.U./dl (0.2-1.0)
--- NOTE | 2018-10-27 01:53 | NUR ---
PROGRESS PT A/O X4 ADMITTED WITH ACUTE SINUSITIS AND TONGUE SWELLING. SWELLING HAS SUBSIDED BUT PT REPORTS TONGUE IS ON FIRE, PATTEN RED AND MOIST. NOTIFIED AND ORDERED DIFUCAN. HE ALSO REMOVED SUTURES TO LEFT EYEBROW WOUND WELL APPROXIMATED WITH NO S/S OF INFECTION NOTED. UP WITH 1 GB AND WALKER TO BSC VOIDING QS. UA SENT TO LAB . SL IN LAC FLUSHES WITHOUT DIFFICULTY. TELE INTACT READING SR WITH PVC'S WITH A RATE OF 89. SKIN C/D/I WITH NO AREAS OF BREAKDOWN NOTED, PT USES CALL LIGHT APPROPRIATELY. HAS SLEPT MOST OF THE SHIFT.
[2018-10-27 05:00] VITALS: BP 133/56
[2018-10-27 05:03] LABS: CALCIUM 9.5 mg/dL (8.5-10.1); CREATININE 0.8 mg/dL (0.6-1.0); POTASSIUM 3.5 mmol/L (3.5-5.1)
[2018-10-27 05:34] LABS: % SATURATION 49 % (20-39); IRON 98 ug/dL (50-170); TIBC 202 ug/dL (250-450)
[2018-10-27 06:01] LABS: FOLIC ACID 11.4 ng/mL (8.6-58.9)
[2018-10-27 08:33] VITALS: BP 123/63
[2018-10-27 15:00] VITALS: BP 132/64
[2018-10-27 19:12] VITALS: BP 93/60
--- NOTE | 2018-10-27 19:55 | NUR ---
Pt vs stable through out the shift. Alert andoriented but may be repetitive at times and tends to forget a few things. Seen by Cardiology and was cleared from their stand point to dc. PT worked with pt in the am and the highest hr was at 130 and in the afternoon 140. Pt had no compaints.
[2018-10-28 03:23] VITALS: BP 156/90
--- NOTE | 2018-10-28 05:57 | NUR ---
Pt. rested quietly at intervals during the night when checked on during frequent rounds. She offers no c/o pain or discomfort. Up to the bathroom with stand by assistance. Bed alarm is on.
[2018-10-28 06:03] LABS: CALCIUM 9.1 mg/dL (8.5-10.1); CREATININE 0.7 mg/dL (0.6-1.0); POTASSIUM 4.3 mmol/L (3.5-5.1)
[2018-10-28 08:00] VITALS: BP 144/68
[2018-10-28 13:36] VITALS: BP 128/56
--- NOTE | 2018-10-28 16:04 | NUR ---
TOWARDS POC PT A/O X4, VSS,AFEBRILE, C/O PAIN ON LOWER LIP. PROVIDER IS AWARE, PT/OT ABLE TO WORK ON HER, HR 130'S NOTED WHEN GETTING UP. FALL PRECAUTION IN PLACE. WILL CONTINUE TO MONITOR.
[2018-10-29 05:09] VITALS: BP 146/55
--- NOTE | 2018-10-29 05:26 | NUR ---
Pt. rested quietly during the night when checked on during frequent rounds. She offers no complaints. Bed alarm is on.
[2018-10-29 06:04] LABS: CREATININE 0.7 mg/dL (0.6-1.0); MAGNESIUM 1.7 mg/dL (1.8-2.4); POTASSIUM 3.7 mmol/L (3.5-5.1)
[2018-10-29 08:27] VITALS: BP 127/71
--- NOTE | 2018-10-29 10:54 | EKG ---
[address] [address] ELECTROCARDIOGRAM REPORT Name: CHAPARRITAMARITOEUN PEDRO Room #: 463-P ADM IN M.R.#: [id number] Admission: 10/24/18 Attend Phys: Manuelito Michaels MD Discharge: Date of : 30 Report #: [id number] THIS REPORT FOR: //name// [facility] [place] Test Date: 2018-10-28 Test Time: 07:46:54 Pat Name: MARITO CHEATHAM Department: Room: 463 P Gender: F Telemarketer: NIA : 1930 Requested By: Manuelito Michaels Order Number: [id number] MD: Ole Corrigan Measurements Intervals [place] Rate: 77 P: 57 SC: 130 QRS: -62 QRSD: 97 T: 82 QT: 374 QTc: 424 Interpretive Statements Sinus rhythm Atrial premature complex Left anterior fascicular block Left ventricular hypertrophy Compared to ECG 10/24/2018 07:18:21 Atrial premature complex(es) now present Sinus tachycardia no longer present Early repolarization no longer present Electronically Signed On 10-29-2018 10:54:07 RESEARCH MANAGEMENT ASSOCIATE by Ole Corrigan [email or web address] <ELECTRONICALLY SIGNED> By: Ole Corrigan MD 10/29/18 1054 0746 0746 Ole Corrigan MD /EPI
--- NOTE | 2018-10-29 12:56 | NUR ---
TOWARDS POC PT A/O X4, VSS, AFEBRILE. DENIES PAIN. PT SEEMS COMFORTABLE SITTING ON HER CHAIR. NO CONCERNS VOICED. WILL CONTINUE TO MONITOR.
[2018-10-29 14:50] VITALS: BP 113/44
[2018-10-29 19:00] VITALS: BP 131/55
[2018-10-30 04:18] VITALS: BP 144/63
--- NOTE | 2018-10-30 05:42 | NUR ---
Assumed care at 1845. Pt resting in bed. Denies chest pain. No issues breathing. Tongue swelling has resolved. Still waiting on insurance verification for placement. No identified needs at the moment. Will continue to monitor.
[2018-10-30 07:52] VITALS: BP 131/58
[2018-10-30 07:53] VITALS: BP 111/80; BP 94/76
--- NOTE | 2018-10-30 10:37 | NUR ---
Followup: tongue swelling better but pt reports still some burning. Able to eat and prefers light meals. Brings in own Boost supplements because does not like Ensure brand. Wt up to 140 lb. Change nutrition status to low risk
--- NOTE | 2018-10-30 14:29 | NUR ---
DP FAXED UPDATES TO [facility] AND NOTIFIED EZIO AT [facility] THAT UPDATES WERE FAXED.
[2018-10-30 15:37] VITALS: BP 109/54
[2018-10-30 19:28] VITALS: BP 120/61
--- NOTE | 2018-10-30 19:29 | NUR ---
PT STABLE THROUGHOUT SHIFT. FAMILY IN TO VISIST. PT RESTING COMFORTABLY.
[2018-10-31 05:18] VITALS: BP 128/44
--- NOTE | 2018-10-31 07:05 | NUR ---
Assumed care at 1845. Pt resting in bed. No issues with breathing. No identified needs. Will continue to monitor.
[2018-10-31 08:17] VITALS: BP 117/67
--- NOTE | 2018-10-31 14:39 | NUR ---
ASSUMED CARE AT 0700. AXOX4. CALLS APPROPRIATELY. MAG REPLACED. ON PT/OT. SEENB BY AT BEDSIDE. INSURANCE AUTH TO A FACILITY, PT REFUSED TO GO BACK. NOW LOOKING FOR NEW PLACEMENT. NO S/S ACUTE DISTRESS NOTED OR REPORTED AT THIS TIME. WILL CONT TO MONITOR FOR ANY CHANGES IN CONDTION.
--- NOTE | 2018-10-31 14:52 | NUR ---
CM FOLLOWED UP WITH [facility] THIS AM THEY INDICATED THAT THEY HAD JUST RECIEVED AUTH FROM PT'S INSURNACE FOR PT TO ADMIT THERE FOR SKILLED REHAB SERVICES. CM NOTIFIED NURSE, PHYSICIAN, PT, AND FAMILY. PT AND FAMILY INDICATED THAT THEY DIDN'T WANT TO RETURN TO [facility] AND SHE INDICATED THEY GAVE HER THE WRONG MEDS WHICH RESILTED IN HER MOUTH SWELLING. CM PROVIDED THEM A LIST OF FACILITIES THAT ARE IN NETWORK WITH THE INSURANCE AND THEY ASKED THAT REFERRALS BE SENT TO [facility], [facility], AND [facility]. REFERRALS WERE SENT. CM TO FOLLOW INDICATED WITH DC PLANNING.
--- NOTE | 2018-10-31 15:36 | NUR ---
dp sent referrals to 3 places, patient did not want to go to original facility that we had auth. sent to 1. [facility], dax left vm with Janay Kimble the clinical nurse, her vm said to fax referrals to [phone], dp left info that patient ready to dc and to call if they don't receive referral, and call if they can possibly accept. 2. [facility], dax faxed to facility and left message informing [facility] [place] to expect referral, patient ready now, had to fax to alternate number as fax kept coming back busy, dp sent to [facility] [phone]. 3. [facility], said patient is not in network. Case management to follow up.
[2018-10-31 20:40] VITALS: BP 128/69
[2018-11-01 04:16] VITALS: BP 128/68
--- NOTE | 2018-11-01 07:33 | NUR ---
PROGRESS PT SLEPT THROUGHOUT NIGHT VSS, TELEMETRY INTACT, RATED NECK PAIN A 5 HYDROCODONE GIVEN WITH SOME EFFECT, AWAITING PLACEMENT.
[2018-11-01 07:43] VITALS: BP 125/64
--- NOTE | 2018-11-01 12:05 | NUR ---
IVANA CALLED REGARDING A REFERRAL SENT YESTERDAY TO [facility], IVANA SPOKE WITH CHRIS, CHRIS SAID SHE JUST GOT FAX THIS MORNING (NOT SURE WHY THIS MORNING NOTHING FROM HERE WAS FAXED TODAY), CHRIS WILL LOOK OVER AND LET US KNOW IF THEY CAN ACCEPT. DP ALSO WAS REQUESTED TO SEND THERAPY TO [facility], HOWEVER NO THERAPY IS IN FOR TODAY EXCEPT OT VARIANCE, DP REQUESTED NEVA FROM CASE MANAGEMENT SEE THAT THERAPY GETS ORDERED. CASE MANAGEMENT TO FOLLOW UP.
[2018-11-01 15:06] VITALS: BP 111/67
--- NOTE | 2018-11-01 16:13 | NUR ---
UPDATED THERAPY NOTES WERE SENT TO [facility]. CM NOTIFIED PT'S MARTÍN HICKEY THAT WE ARE AWAITING RESPONSES FOR THE FACILITIES. CM TO FOLLOW INICATED WITH DC PLANNING.
--- NOTE | 2018-11-01 17:55 | NUR ---
PT STABLE THROUGHOUT SHIFT. C/O PAIN AND COUGH WHICH WERE ADDRESSED WITH MEDICATION. PT RESTING.
[2018-11-01 20:58] VITALS: BP 119/65
[2018-11-02 06:05] VITALS: BP 109/53
[2018-11-02 07:45] VITALS: BP 109/61
--- NOTE | 2018-11-02 12:25 | NUR ---
CM CALLED [facility] TO CHECK ON STATUS OF INSURNACE AUTH AND THEY INDICATED THEY DON'T HAVE IT YET AND THEY ASKED FOR UPDATED THERAPY NOTES. NOTES TO BE FAXED. CM TO FOLLOW INDICATED WITH DC PLANNING.
--- NOTE | 2018-11-02 13:26 | NUR ---
Assumed pt care [id number]. pt was a/o with some confusion. will continue to monitor cognition but i believe this is the pts baseline. pt does not have complaints or issues at this time. will continue to monitor
--- NOTE | 2018-11-02 15:35 | NUR ---
DISCHARGE PLANNING. ANTICIPATED DISCHARGE TO [facility]. INSURANCE AUTHORIZATION IS PENDING PT AND OT ASSESSEMENTS. AWAITING CLINICAL DOCUMENTATION FOR TODAY AND WILL FORWARD TO [facility] ADMISSIONS FOR INSURANCE AUTH PROCESS. UNIT SW NOTIFIED.
[2018-11-02 16:25] VITALS: BP 123/68
[2018-11-02 20:05] VITALS: BP 112/66
--- NOTE | 2018-11-03 03:09 | NUR ---
PT USED CALL LIGHT EFFECTIVELY PT DID NOT TRY TO GET UP UNASSISTED TO THE BATHROOM PT SLEPT ON AND OFF DURING THE NIGHT NO ISSUES OVERNIGHT.
[2018-11-03 04:56] VITALS: BP 120/68
[2018-11-03] MEDS ORDERED: METOPROLOL SUCC25 M1 PO (08:27)
[2018-11-03] MEDS ORDERED: SEROQUEL 25 MG25 M1 PO (08:27)
[2018-11-03] MEDS ORDERED: HYDROCODON-ACE1 EAC7 PO (08:27)
[2018-11-03] MEDS ORDERED: LIDOPATCH1 EACH TRANSDERM (08:31)
[2018-11-03] MEDS ORDERED: MAGOX 400400 MG PO (08:35)
[2018-11-03] MEDS ORDERED: KLOR-CON 1010 MEQ PO (08:35)
[2018-11-03 09:01] VITALS: BP 138/74
--- NOTE | 2018-11-03 12:48 | NUR ---
WE ARE STILL AWAITING AUTH FROM PT'S INSURNACE FOR PT TO GO TO [facility] FOR POST ACUTE CARE STAY. UPDATED THERAPY NOTES WERE FAXED TO THE FACILITY THIS MORNING. TO CHECK FOR AUTH STATUS OVER THE WEEKEND. CONTACT WEEKEND ADMISSIONS AT FAX: . CHART COPY MADE. CM TO FOLLOW INDICATED WITH DC PLANNING.
--- NOTE | 2018-11-03 14:15 | NUR ---
AUTH WAS RECEIVED FOR PT TO GO TO [facility] THIS DAY. CHART COPY WAS MADE. ORDERS ARE TO BE FAXED ONCE COMPLETED. PT AND MARTÍN HICKEY ARE AWARE AND AGREEABLE. [facility]SPORT IS ARRANGED FOR 1600 THIS DAY. REPORT TO BE CALLED TO . NO OTHER CM INTERVENTION INDICATED AT THIS TIME. CASE CLOSED.
[2018-11-03 16:04] VITALS: BP 138/74
== END 2018-11-03 16:18 | DRG 917 ==
LOC: ER 06:52 → 4W 09:27 → EROBS 09:27 → 4W 10:03
PROVIDERS: Emergency Medicine; Internal Medicine; ADMIT Internal Medicine
DX: T40.4X5A Adverse effect of other synthetic narcotics, initial encounter (principal); E43 Unspecified severe protein-calorie malnutrition; I50.30 Unspecified diastolic (congestive) heart failure; I47.1 Supraventricular tachycardia; K14.0 Glossitis; J01.90 Acute sinusitis, unspecified; E87.6 Hypokalemia; J02.9 Acute pharyngitis, unspecified; E78.5 Hyperlipidemia, unspecified; I08.3 Combined rheumatic disorders of mitral, aortic and tricuspid valves; G89.29 Other chronic pain; M54.9 Dorsalgia, unspecified; M19.90 Unspecified osteoarthritis, unspecified site; I11.0 Hypertensive heart disease with heart failure; E83.42 Hypomagnesemia; R31.9 Hematuria, unspecified; I49.3 Ventricular premature depolarization; Y92.89 Other specified places as the place of occurrence of the external cause; Z87.440 Personal history of urinary (tract) infections; Z90.710 Acquired absence of both cervix and uterus; Z68.24 Body mass index [BMI] 24.0-24.9, adult; Z91.81 History of falling; Z87.828 Personal history of other (healed) physical injury and trauma; Z85.3 Personal history of malignant neoplasm of breast; Z79.82 Long term (current) use of aspirin; Z79.899 Other long term (current) drug therapy; Z88.1 Allergy status to other antibiotic agents; Z88.8 Allergy status to other drugs, medicaments and biological substances; Z82.49 Family history of ischemic heart disease and other diseases of the circulatory system
CPT/HCPCS: 10045

== ENCOUNTER 2019-07-23 21:28 | Inpatient (IN) | payer OTHER ==
[~2019-07-23] VITALS: Ht 165.1 cm; Wt 56.7 kg
[~2019-07-23 21:28] MED LIST changes: +HYDROCODON-ACE1 EAC7 PO; +KLOR-CON 1010 MEQ PO; +LIDOPATCH1 EACH TRANSDERM; +MAGOX 400400 MG PO; +METOPROLOL SUCC25 M1 PO; +SEROQUEL 25 MG25 M1 PO; +VOLTAREN GEL 1100 G2 TOP
[2019-07-23 21:29] VITALS: BP 159/84
[2019-07-23] MEDS ORDERED: TRAMADOL (21:51)
[2019-07-23 22:17] LABS: URINE BILIRUBIN NEGATIVE (Negative); URINE BLOOD 3+ (Negative); URINE CLARITY CLOUDY; URINE COLOR YELLOW; URINE GLUCOSE-RANDOM* NEGATIVE (Negative); URINE KETONES 2+ (Negative); URINE PROTEIN (DIPSTICK) 2+ (Negative); URINE SPECIFIC GRAVITY >= 1.030 (1.005-1.035); URINE UROBILINOGEN 0.2 E.U./dl (0.2-1.0)
[2019-07-23 22:18] LABS: URINE LEUKOCYTES-REFLEX 2+ (Negative); URINE NITRITE-REFLEX POSITIVE (Negative)
[2019-07-23 22:25] LABS: CASTS None Seen /LPF (None Seen); CRYSTALS None Seen /LPF (None Seen); MUCUS 0-3 Light strn/LPF (None Seen); SQUAMOUS 0-3 Few /LPF (0-3); URINE RBC >20 Many /HPF (0-2); URINE WBC-REFLEX >25 Many /HPF (0-5); WBC CLUMPS Packed (None Seen)
[2019-07-23 22:27] LABS: AMP/METHAMP Negative (Negative); BARBITURATES Negative (Negative); BENZODIAZEPINES Negative (Negative); COCAINE Negative (Negative); METHADONE Negative (Negative); OPIATES Negative (Negative); PCP Negative (Negative)
[2019-07-23 23:14] LABS: ABSOLUTE NEUTROPHILS 3.7 thou/uL (1.4-8.2); BASOPHILS 1.3 % (0.0-2.0); EOSINOPHILS 0.5 % (0.0-3.0); HEMATOCRIT 48.4 % (37.0-47.0); HEMOGLOBIN 16.1 gm/dL (12.0-15.0); LYMPHOCYTES 33.6 % (24.0-44.0); MCH 33.2 pg (26.0-34.0); MCHC 33.2 g/dL (28.0-37.0); MONOCYTES 11.3 % (1.0-8.0); PLATELET COUNT 244 thou/uL (150-400); POLYS 53.3 % (36.0-66.0); RBC 4.85 mil/uL (4.20-5.00); RDW 13.3 % (10.5-14.5)
[2019-07-23 23:29] LABS: ANION GAP 11 mmol/L (7-16); BUN 18 mg/dL (7-18); CALCIUM 9.5 mg/dL (8.5-10.1); CHLORIDE 103 mmol/L (98-107); CO2 26 mmol/L (21-32); CREATININE 0.7 mg/dL (0.6-1.0); GLUCOSE 105 mg/dL (74-106); POTASSIUM 3.9 mmol/L (3.5-5.1); SODIUM 140 mmol/L (136-145)
[2019-07-23 23:39] LABS: ALBUMIN 3.5 g/dL (3.4-5.0); MAGNESIUM 1.9 mg/dL (1.8-2.4); SGOT 20 U/L (15-37); SGPT 6 U/L (30-65); TOTAL BILIRUBIN 0.5 mg/dL (<0.1-1.0); TOTAL PROTEIN 7.6 g/dL (6.4-8.2); TROPONIN-I <0.06 ng/mL (<0.06)
[2019-07-24 01:07] VITALS: BP 121/90
[2019-07-24 01:27] VITALS: BP 131/90
[2019-07-24 01:47] VITALS: BP 135/60
--- NOTE | 2019-07-24 07:22 | NUR ---
ADMIT PT ADMITTED TO ROOM 451 FROM ED BEING ADMITTED WITH UTI AND INCREASED WEAKNESS. PT A/O X 4 BUT A LITTLE CONFUSION NOTED ON ARRIVAL CLEARED THROUGHOUT NIGHT UP WITH SBA A LITTLE FORGETFUL USING CALL LIGHT SO BED ALARM IN PLACE. VSS, SKIN C/D/I NO AREAS OF BREAKDOWN NOTED.
[2019-07-24 07:55] VITALS: BP 134/62
[2019-07-24 14:13] LABS: ALBUMIN 3.1 g/dL (3.4-5.0); CREATININE 0.7 mg/dL (0.6-1.0); POTASSIUM 3.7 mmol/L (3.5-5.1); TOTAL BILIRUBIN 0.7 mg/dL (<0.1-1.0); TOTAL PROTEIN 6.3 g/dL (6.4-8.2)
--- NOTE | 2019-07-24 14:16 | NUR ---
Received awake on bed. Due medications given as prescribed. On room air. Pt confused, re-oriented from time to time. Able to walk to the toilet using gait belt and walker. Vital signs stable. With NS at 125cc/hr, infusing well at R AC- re-inforced with protective band. Dr Michaels called this AM- pt for CMP at 1400- orders made. Assisted in ADLs. Encouraged and assisted to eat and drink. Falls bundle in place.
[2019-07-24 14:46] VITALS: BP 130/70
--- NOTE | 2019-07-24 14:58 | NUR ---
PT ADMITTED RELATED TO UTI/ WEAKNESS AND CONFUSION. CM REVIEWED CHARTAND SPOKE WITH CARE TEAM. CM MET WITH PT AT BEDSIDE THIS DAY. PT APPEARED TO BE A&O X4. PT INDICATED SHE LIVES ALONE IN A RANCH STYLE HOUSE WITH 2 STEPS TO ENTER AND NONE SHE USES INSIDE. 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 PT INDICATED SHE HAD HOME HEALTH IN THE PAST BUT COULDN'T RECALL PROVIDER. PT INDICATED SHE HAD GONE FOR REHAB IN THE PAST. PT INDISCATED SHE PLANS TO RETURN HOME ONCE MEDICALLY STABLE. CM CALLED AND SPOKE WITH PT'S NIECE RUPERTO AND SHE INDICATED PT HAD USED [facility] IN THE PAST AND HAD GONE TO [facility] AND [facility] REC[facility]. CM TO FOLLOW INDICIATED WITH DC PLANNING.L
--- NOTE | 2019-07-24 17:02 | EKG ---
[place] [address] [employer] [place] [address] ELECTROCARDIOGRAM REPORT Name: MARITO CHEATHAM Room #: 451-P ADM IN M.R.#: [id number] Admission: 07/24/19 Attend Phys: Manuelito Michaels MD Discharge: Date of : 30 Report #: [id number] THIS REPORT FOR: //name// [facility] ED Test Date: 2019-07-23 Test Time: 22:51:24 Pat Name: MARITO CHEATHAM Department: Room: [facility] Gender: F Web Interface Developer: : 1930 Requested By: Donavan Vincent Order Number: [id number] MD: Ramón Badillo Measurements Intervals [place] Rate: 90 P: 22 SD: 150 QRS: -61 QRSD: 96 T: 108 QT: 368 QTc: 451 Interpretive Statements Sinus rhythm Left anterior fascicular block Abnormal R-wave progression, early transition LVH with secondary repolarization abnormality Compared to ECG 10/28/2018 07:46:54 Atrial premature complex(es) no longer present Electronically Signed On 07-24-2019 17:02:16 MEDICAL DIRECTOR OF HOSPICE by Ramón Badillo [email or web address] <ELECTRONICALLY SIGNED> By: Ramón Badillo MD, [facility] 07/24/19 1702 [id number] Ramón Badillo MD, [facility] /EPI
--- NOTE | 2019-07-24 17:03 | EKG ---
[place] [address] [facility] [place] [address] ELECTROCARDIOGRAM REPORT Name: MARITO CHEATHAM Room #: 451-P ADM IN M.R.#: [id number] Admission: 07/24/19 Attend Phys: Manuelito Michaels MD Discharge: Date of : 30 Report #: [id number] THIS REPORT FOR: //name// [facility] ED Test Date: 2019-07-24 Test Time: 00:01:10 Pat Name: MARITO CHEATHAM Department: Room: 451 P Gender: F Singe Machine Operator: DAKOTAH : 1930 Requested By: Donavan Vincent Order Number: [id number] MD: Ramón Badillo Measurements Intervals [place] Rate: 94 P: 13 IL: 181 QRS: -59 QRSD: 96 T: 109 QT: 371 QTc: 464 Interpretive Statements Sinus rhythm Left anterior fascicular block Abnormal R-wave progression, early transition LVH with secondary repolarization abnormality Anterior Q waves, possibly due to LVH Compared to ECG 10/28/2018 07:46:54 no significant change was found Electronically Signed On 07-24-2019 17:03:36 EXTRACT OPERATOR by Ramón Badillo [email or web address] <ELECTRONICALLY SIGNED> By: Ramón Badillo MD, [facility] 07/24/19 1703 0001 0001 Ramón Badillo MD, [facility] /EPI
[2019-07-25 05:02] LABS: HEMATOCRIT 43.7 % (37.0-47.0); HEMOGLOBIN 14.5 gm/dL (12.0-15.0); MCH 33.4 pg (26.0-34.0); MCHC 33.1 g/dL (28.0-37.0); MCV 100.8 fL (80.0-100.0); RBC 4.33 mil/uL (4.20-5.00); RDW 13.1 % (10.5-14.5); WBC 7.4 thou/uL (4.0-11.0)
[2019-07-25 05:14] LABS: ALBUMIN 3.2 g/dL (3.4-5.0); CREATININE 0.6 mg/dL (0.6-1.0); POTASSIUM 3.5 mmol/L (3.5-5.1); TOTAL BILIRUBIN 0.7 mg/dL (<0.1-1.0); TOTAL PROTEIN 6.2 g/dL (6.4-8.2)
--- NOTE | 2019-07-25 07:55 | NUR ---
progress pt with severe confusion given haldol at shift change drowsy but still restless, pulled iv restarted in left forearm, repeatedly getting out of bed unassisted incontinent of urine, thinks shes at home and asks"how did you get in here" reoriented without success. ivf's continue voiding qs vss, pt slept on and off for brief intervals.
[2019-07-25 08:02] VITALS: BP 147/70
--- NOTE | 2019-07-25 10:47 | NUR ---
Received awake on bed. Due medications given as prescribed. Pt confused, re-oriented frequently, very keen to go home. Vital signs stable. With SL at L FA- NS at 125cc/hr, infusing well. On room air. On Heart healthy diet- tolerating well, encouraged and assisted in eating, drinking and ADLs; No nausea, no vomiting, no abdominal pain noted. Pt's niece called in, asked her if pt has had her flu vaccine for this year- as per pt's niece Alivia Golden- pt already had her flu vaccine from Dr Michaels's office for this year- current order discontinued on [place]. Falls risk, falls bundle in place.
[2019-07-25 12:05] VITALS: BP 131/48
--- NOTE | 2019-07-25 13:52 | NUR ---
QUETA SPOKE WITH PT'S NIECE AND SHE ASKED THAT REFERRAL BE SENT TO [facility] FOR REVIEW FOR POSSIBLE ADMISSION. QUETA ALSO SPOKE WITH PT SON. CM TO FOLLOW INDICATED WITH DC PLANNING.
--- NOTE | 2019-07-25 14:02 | NUR ---
DISCHARGE PLANNING. ANTICIPATED DISCHARGE IS PLANNED FOR TUESDAY. POST ACUTE RECOMMENDED AT DISCHARGE. PATIENT REFERRAL FAXED TO [facility]. CALL PLACED TO [facility] TO NOTIFY. [facility] TO REVIEW AND NOTIFY CM. FOLLOWING TO ASSIST.
[2019-07-25 15:09] VITALS: BP 145/80
[2019-07-25 19:43] VITALS: BP 142/49
--- NOTE | 2019-07-26 05:50 | NUR ---
PROGRESS PT CONFUSED AND RESTLESS AT START OF SHIFT, RE-ORIENTED WITH LITTLE EFFECT. PT SLEPT MOST OF SHIFT IVF'S CONTINUE. SETTING OFF BED ALARM TRYING GET UP ON HER OWN VOIDING QS. REPOSITIONING SELF IN BED FREQUENTLY PLAN TO DC TO LTC TUESDAY OR WHEN MEDICALLY STABLE.
[2019-07-26 08:09] VITALS: BP 147/87
--- NOTE | 2019-07-26 11:54 | NUR ---
PT A&O TO SELF, VSS, NO APPARENT PAIN. PATIENT RESTING IN BED, COOPERATIVE, NOT IMPULSIVE. NO APPARENT HALLUCINATIONS AT THIS TIME. PATIENT EATING AND DRINKING. FLUIDS INFUSING, PILLS TAKEN WHOLE. MARYLOU CARE GIVEN WITH CROZE MACHINE OPERATOR. NO SIGNS OF DISTRESS. WILL CONTINUE TO MONITOR.
[2019-07-26 15:01] VITALS: BP 108/76
--- NOTE | 2019-07-26 16:15 | NUR ---
CM SPOKE WITH PT'S NIECE RUPERTO THIS AM AND INDICATED THAT [facility] CAN'T TAKE PT. SHE ASKED THAT REFERRALS BE SENT TO [facility] FOR REVIEW FOR POSSIBLE ADMISSION. CM THEN READ IN DR. CRUZ'S PROGRESS NOTE THAT HE WAS CONSIDERING SEE IF PT MIGHT BENEFIT FROM [facility] AND THAT PT WASN'T YET READY FOR SNF. CM ASKED THAT DC RN NEUROLOGY WAIT TO SENT REFERRALS TO SNFS. CM TO FOLLOW INDICATED WITH DC PLANNING.
[2019-07-26 21:38] VITALS: BP 117/62
--- NOTE | 2019-07-27 05:37 | NUR ---
Pt. rested quietly at intervals during the night when checked on during frequent rounds. She has been alert and oriented to self and time. Upon assessment she thought she was at her home and people were moving things out of it. No impulsive behavior. She c/o generalized pain and wanted some tramadol. Dr. Michaels making rounds last pm and notified. prefers to just give her tylenol for now. Spoke to pt. about this and she refused the tylenol. Bed alarm is on.
[2019-07-27 07:01] LABS: FOLIC ACID 30.5 ng/mL (8.6-58.9)
[2019-07-27 08:00] VITALS: BP 105/77
--- NOTE | 2019-07-27 10:15 | NUR ---
DISCHARGE PLANNING. PATIENT IS READY FOR DISCHARGE TODAY. POST ACUTE RECOMMENDED AT DISCHARGE. PATIENT REFERRAL FAXED TO [facility], AND [facility] PER REQUEST. PT AND OT TO SEE PATIENT TODAY. WILL FORWARD ASSESSEMENTS TO FACILITIES ONCE AVAILABLE FOR INSURANCE AUTH PROCESS. CALL PLACED TO ALL ADMISSIONS COORDINATORS TO NOTIFY OF REFERRAL AND DISCHARGE PLAN. AWAITING RESPONSE. UNIT SW AWARE. FOLLOWING.
--- NOTE | 2019-07-27 10:20 | NUR ---
DISCHARGE PLANNING. PATIENT IS READY FOR DISCHARGE TODAY. POST ACUTE RECOMMENDED AT DISCHARGE. PATIENT REFERRAL [facility]ED TO [facility] PER REQUEST. CALL PLACED TO ADMISSIONS COORDINATORS TO NOTIFY OF PATIENT REFERRAL AND DISCHARGE PLAN. AWAITING RESPONSE. FOLLOWING TO ASSIST. UNIT SW AWARE.
[2019-07-27 14:56] VITALS: BP 109/49
--- NOTE | 2019-07-27 15:54 | NUR ---
Received awake on bed. Due medications given as prescribed, able to swallow meds w/o difficulty. A+O to self only, confused. On room air. Able to use bedside commode to pass urine and for bowel movement. With NS at 50cc/hr, infusing well at L FA. Pt re-oriented from time to time. Complained of neck pain, due PRN pain meds given as prescribed. Seen by PT today- tolerated well; A01 using walker and gait belt, able to sit out on chair, Vital signs stable. Assisted in ADLs, eating and drinking- encouraged to eat and drink. No nausea, no vomiting and no abdominal pain noted. For possible discharge today- a/w CM re: placement.
--- NOTE | 2019-07-27 16:11 | NUR ---
[facility] INDICATED THEY ARE ABLE TO ACCEPT AND THAT THE YWOULD SUBMIT FOR AUTH THIS AFTERNOON. NIESHA PEREZ IN ADMISSIONS TO INQUIRE ABOUT STATUS OF AUTH FAX ORDERS ONCE COMPLETED TO .
[2019-07-27 22:20] VITALS: BP 103/64
--- NOTE | 2019-07-28 05:24 | NUR ---
Pt. rested quietly at intervals during the night when checked on during frequent rounds. She c/o arthritic pain all over and voltaren gel applied (see emar). Pt. has been alert and oriented times two. Assisted to the bedside comode with one assist,walker and gait belt. Bed alarm is on.
[2019-07-28 08:08] VITALS: BP 128/78
--- NOTE | 2019-07-28 13:35 | NUR ---
Received awake on bed. Due medications given as prescribed, able to swallow meds w/o difficulty. With on and off confusion, pt thinks she is at her house, re-oriented pt frequently. Assisted in ADLs, eating and drinking. Pt complaining of joint pains, with scheduled diclofenac cream- applied as needed. Vital signs stable. Able to use bedside commode, with A01 and gaitbelt. With Normal saline at 50cc/hr, infusing well at L FA.
[2019-07-28 14:55] VITALS: BP 127/52
[2019-07-28 19:42] VITALS: BP 121/61
[2019-07-29 05:29] LABS: HEMATOCRIT 38.5 % (37.0-47.0); HEMOGLOBIN 12.9 gm/dL (12.0-15.0); MCH 33.4 pg (26.0-34.0); MCHC 33.5 g/dL (28.0-37.0); MCV 99.6 fL (80.0-100.0); RBC 3.87 mil/uL (4.20-5.00); RDW 12.9 % (10.5-14.5); WBC 8.1 thou/uL (4.0-11.0)
[2019-07-29 05:42] LABS: CALCIUM 8.2 mg/dL (8.5-10.1); CREATININE 0.7 mg/dL (0.6-1.0)
[2019-07-29 05:44] LABS: POTASSIUM 2.7 mmol/L (3.5-5.1)
--- NOTE | 2019-07-29 06:00 | NUR ---
Pt. rested quietly at intervals during the first part of the shift. Then, she became increasingly confused. Pt. pulled out her iv and it was replaced. She then pulled out the new iv early this am. Becomes easily beligerent with staff. Spoke to Dr. Michaels this am about pt. low K+ and behavior (see new orders). Dr. Michaels also was ok for leaving the iv out for now and maybe retry later this am. Bed alarm is on.
[2019-07-29 08:00] VITALS: BP 138/63
--- NOTE | 2019-07-29 13:28 | NUR ---
PT ALERT AND ORIENTED TO SELF. CARES GIVEN ORDERED. PATIENT TOLERATING DIET. PATIENT AGITATED AT TIMES, ABLE TO CALM. PATIENT UP TO RECLINER. WILL CONTINUE TO MONITOR.
[2019-07-29 15:00] VITALS: BP 108/45
[2019-07-29 19:40] VITALS: BP 106/58
--- NOTE | 2019-07-30 02:37 | NUR ---
ASSUMED CARE OF PT AT 1900HRS. PT IS ALERT BUT ONLY ORIENTED TO PERSON. FALL PRECAUTION IN PLACE. PT WAS ABLE TO GET COMFORTABLE AND SLEEP PART OF THE SHIFT. VSS AND NO S/S OF ACUTE DISTRESS. WILL CONTINUE TO MONITOR.
[2019-07-30 06:06] VITALS: BP 125/66
[2019-07-30 07:29] LABS: CALCIUM 8.8 mg/dL (8.5-10.1); CREATININE 0.6 mg/dL (0.6-1.0); MAGNESIUM 1.9 mg/dL (1.8-2.4)
[2019-07-30 07:31] LABS: POTASSIUM 5.3 mmol/L (3.5-5.1)
[2019-07-30 08:12] VITALS: BP 125/66
[2019-07-30 08:25] VITALS: BP 112/40
--- NOTE | 2019-07-30 16:37 | NUR ---
CLINICAL UPDATE SENT TO [facility]. CM FOLLOWING REGARDING AUTH AND DC PLANNING.
[2019-07-30 19:15] VITALS: BP 141/63
--- NOTE | 2019-07-31 03:29 | NUR ---
ASSUMED CARE AROUND 190. AXOX2. CALLS APPROPRIATELY FOR HELP. HYPERKALEMIA ADDRESSED TO AT BEDSIDE. K+ D/C FROM MEDS AND NOW IVF OF NS. NO S/S ACUTE DISTRESS NOTED OR REPORTED AT THIS TIME. WILL CONT TO MONITOR FOR ANY CHANGES IN CONDITION.
[2019-07-31 03:42] VITALS: BP 121/89
[2019-07-31 07:37] VITALS: BP 153/79
[2019-07-31] MEDS ORDERED: NAMENDA 5 MG TAB5 M1 PO (14:28)
[2019-07-31] MEDS ORDERED: OLANZAPINE10 M2 IM (14:28)
[2019-07-31] MEDS ORDERED: BACTRIM DS TAB1 EACH PO (14:28)
[2019-07-31] MEDS ORDERED: VOLTAREN GEL 1100 G1 TOP (14:28)
[2019-07-31] MEDS ORDERED: PREMARIN0.625 MG PO (14:28)
[2019-07-31] MEDS ORDERED: ZYPREXA 5 MG TAB5 M1 PO (14:28)
[2019-07-31] MEDS ORDERED: ENOXAPARIN30 MG/0.1 SUBQ (14:28)
[2019-07-31] MEDS ORDERED: ARICEPT 5 MG TAB5 MG PO (14:28)
[2019-07-31] MEDS ORDERED: METOPROLOL SUCC25 M1 PO (14:30)
[2019-07-31 15:40] VITALS: BP 124/59
--- NOTE | 2019-07-31 17:55 | NUR ---
PT A&OX2, VSS, GENERALIZED PAIN. PATIENT CALLS OUT FOR BEDPAN USE. BEHAVIOR COOPERATIVE TODAY. MEDICATION GIVEN ORDERED. PATIENT WILL DISCHARGE TO SNF IN THE A.M. NO SIGNS OF DISTRESS, WILL CONTINUE TO MONITOR.
[2019-07-31 19:00] VITALS: BP 123/97
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
--- NOTE | 2019-08-01 03:07 | NUR ---
ASSUMED CARE AROUND 1915. AXOX2. SEEN BY AT BEDSIDE. IVF STOPPED. NO S/S ACUTE DISTRESS NOTED OR REPORTED AT THIS TIME. WILL CONT TO MONITOR FOR ANY CHANGES IN CONDITION.
[2019-08-01 06:18] VITALS: BP 138/70
[2019-08-01 07:08] VITALS: BP 145/55
--- NOTE | 2019-08-01 15:13 | NUR ---
PT DISCHARGED TO [facility] TODAY AT 9:00AM. ORDERES HAD BEEN FAXED YESTERDAY TO ENSURE THAT THEY HAD PT'S MEDS ON HAND UPON HER ARRIVAL. CM NOTIFIED PT'S SON VIA PHONE YESTERDAY OF DC THIS MORNING AT 9:00. CM PROVIDED HIM WITH THE FACILITIES PHONE NUMBER AT HE LIVES IN [place]. CM CALLED AND LEFT YESTERDAY FOR PT'S NIECE RUPERTO [facility]. PT TRANSPORTED [facility]IA [facility]. REPORT CALLED NO OTHER CM INTERVENTION INDICATED. CASE CLOSED.
== END 2019-08-01 09:30 | DRG 871 ==
LOC: ER 21:28 → EROBS 07-24 00:52 → 4W 07-24 00:52 → EROBS 07-24 00:52 → 4W 07-24 01:30
PROVIDERS: Emergency Medicine; ADMIT Internal Medicine
DX: A41.9 Sepsis, unspecified organism (principal); G92 Toxic encephalopathy; N39.0 Urinary tract infection, site not specified; R44.3 Hallucinations, unspecified; M19.90 Unspecified osteoarthritis, unspecified site; G89.29 Other chronic pain; M54.9 Dorsalgia, unspecified; E86.0 Dehydration; M41.82 Other forms of scoliosis, cervical region; M41.86 Other forms of scoliosis, lumbar region; R41.0 Disorientation, unspecified; Z60.2 Problems related to living alone; B96.20 Unspecified Escherichia coli [E. coli] as the cause of diseases classified elsewhere; E83.42 Hypomagnesemia; F03.90 Unspecified dementia, unspecified severity, without behavioral disturbance, psychotic disturbance, mood disturbance, and anxiety; Z90.710 Acquired absence of both cervix and uterus; Z88.8 Allergy status to other drugs, medicaments and biological substances; Z79.899 Other long term (current) drug therapy; Z82.49 Family history of ischemic heart disease and other diseases of the circulatory system; Z85.3 Personal history of malignant neoplasm of breast
CPT/HCPCS: 10040

== ENCOUNTER 2020-04-24 16:24 | Inpatient (IN) | payer OTHER ==
[~2020-04-24] VITALS: Ht 160 cm; Wt 52.4 kg
--- NOTE | ~2020-04-24 | HC ---
[facility] [place] [address] CONSULTATION Name: MARITO CHEATHAM WILLIS Room #: 437-P ADM IN M.R.#: [id number] Admission: 04/24/20 Attend Phys: Jabier Villa MD Discharge: Date of : 30 Report #: [id number] THIS REPORT FOR: cc: Manuelito Michaels MD, Stanley P. MD Smithson, David G. MD ~ CC: Jabier Michaels DATE OF SERVICE: 04/28/2020 HISTORY OF PRESENT ILLNESS: The patient is an 89-year-old white female with left leg pain after a fall. She was noted to have increased leukocytosis with severe sepsis, urinary tract infection, and metabolic encephalopathy. She has advanced degenerative arthritis of both hips. Urine culture grew lactobacillus. She is on Cipro with resolution of her leukocytosis. She has discomfort with bilateral hips and has severe arthritic changes. She lives alone and her home healthcare services that are involved have noted decline in the last month with increased weakness. We are seeing her in rehabilitation medicine consultation. PAST MEDICAL HISTORY: Includes chronic back pain, congestive heart failure, atrial fibrillation, breast cancer. HABITS: No history of tobacco or alcohol abuse. ALLERGIES: METHYLPREDNISOLONE, POTASSIUM CLAVULANATE, AMOXICILLIN TRIHYDRATE. SOCIAL HISTORY: She lives in a house alone, has a walker and a wheelchair, no steps, ranch style. She was having home healthcare services that were assisting her ____ noted to be declining, especially the last month. REVIEW OF SYSTEMS: No current complaints of chest pain, shortness of breath or abdominal discomfort. PHYSICAL EXAMINATION: GENERAL: An 89-year-old white female, in no obvious distress. VITAL SIGNS: Temperature 98, pulse 100, respirations 20, blood pressure 146/68. NEUROMUSCULOSKELETAL: She is alert. She will follow basic 1 step commands. She is of slender build. Functional range of motion of both upper extremities, strength is probably a grade 4-/5. Lower extremities, she has some complaints of her hips with attempted gentle range of motion, there is no calf swelling, strength is probably a grade 3+/5 to 4-/5. She has been mod assist sit to stand and mod assist to try to ambulate 2 feet with a front-wheeled walker. ASSESSMENT: An 89-year-old white female with the following problem list: 1. Advanced degenerative arthritis, bilateral hips. [facility] [address] [place] [address] CONSULTATION Name: MARITO CHEATHAM WILLIS Room #: 437-P [facility] IN M.R.#: [id number] Admission: 04/24/20 Attend Phys: Jabier Villa MD Discharge: Date of : 30 Report #: [id number] 2. Leukocytosis with urinary tract infection. 3. Severe sepsis that has resolved. 4. Leukocytosis has resolved. 5. Metabolic encephalopathy, this appears improved. She does have some decreased insight into her deficits however. 6. Prior medical history otherwise as noted above. PLAN: Encouraged her regarding the importance of working with physical therapy and occupational therapy. She does not want to go to a SNF, but would agree that this would likely be the best thing for her. She was having more and more problems in the home setting. Case management is involved. Thank you for asking me to assist in this patient's care. By: [id number] Davi Kapoor MD /nt
[~2020-04-24 16:24] MED LIST changes: +ARICEPT 5 MG TAB5 MG PO; +ENOXAPARIN30 MG/0.1 SUBQ; +NAMENDA 5 MG TAB5 M1 PO; +OLANZAPINE10 M2 IM; +TRAMADOL; +VOLTAREN GEL 1100 G1 TOP; +ZYPREXA 5 MG TAB5 M1 PO
[2020-04-24 17:04] LABS: HEMATOCRIT 40.4 % (37.0-47.0); HEMOGLOBIN 13.2 gm/dL (12.0-15.0); MCH 33.2 pg (26.0-34.0); MCHC 32.7 g/dL (28.0-37.0); MCV 101.5 fL (80.0-100.0); PLATELET COUNT 554 thou/uL (150-400); RBC 3.98 mil/uL (4.20-5.00); WBC 27.7 thou/uL (4.0-11.0)
[2020-04-24 17:11] LABS: ANION GAP 11 mmol/L (7-16); BUN 31 mg/dL (7-18); CALCIUM 9.6 mg/dL (8.5-10.1); CHLORIDE 102 mmol/L (98-107); CO2 26 mmol/L (21-32); GLUCOSE 190 mg/dL (74-106); POTASSIUM 3.5 mmol/L (3.5-5.1); SODIUM 139 mmol/L (136-145)
[2020-04-24 17:20] LABS: TROPONIN-I <0.06 ng/mL (<0.06)
[2020-04-24] MEDS ORDERED: TRAMADOL 50 MG50 MG PO ×2 (17:49)
[2020-04-24 17:50] LABS: ABSOLUTE NEUTROPHILS 22.2 thou/uL (1.4-8.2)
[2020-04-24 17:51] LABS: LARGE PLATELETS RARE; MACROCYTES 1+
[2020-04-24 18:21] LABS: URINE BILIRUBIN 1+ (Negative); URINE BLOOD 3+ (Negative); URINE CLARITY SL CLOUDY; URINE COLOR YELLOW; URINE GLUCOSE-RANDOM* NEGATIVE (Negative); URINE KETONES 1+ (Negative); URINE NITRITE-REFLEX NEGATIVE (Negative); URINE PROTEIN (DIPSTICK) 2+ (Negative); URINE SPECIFIC GRAVITY 1.025 (1.005-1.035); URINE UROBILINOGEN 0.2 E.U./dl (0.2-1.0)
[2020-04-24 18:24] LABS: ICTOTEST (BILI CONFIRMATORY) Negative (Negative); URINE LEUKOCYTES-REFLEX 2+ (Negative)
[2020-04-24 18:32] LABS: CASTS None Seen /LPF (None Seen); CRYSTALS None Seen /LPF (None Seen); URINE WBC-REFLEX >25 Many /HPF (0-5)
[2020-04-24 18:33] LABS: BACTERIA-REFLEX >30 Many /HPF (None Seen); SQUAMOUS 0-3 Few /LPF (0-3); URINE RBC 0-2 Rare /HPF (0-2)
--- NOTE | 2020-04-24 18:34 | NUR ---
SON - BALDOMERO: [phone] WHO NOW LIVES IN [place] AND DID NOT KNOW MUCH ABOUT HIS MOM'S CARE. HE WAS UNAWARE THAT SHE HAD HIRED A CAREGIVER TO ASSIST HER WITH LAUNDRY, CLEANING, AND OTHER TASKS AROUND THE HOUSE. HE DOES NOT KNOW WHERE SHE FILLS HER MEDICATIONS OR WHO PICKS THEM UP FOR HER. HE STATES THAT SHE HAS BEEN VERY INDEPENDENT FOR A LONG TIME AND IS VERY PROUD OF THAT INDEPENDENCE. SON SAID HIS COUSIN, SRINI, WAS GOING TO BE COMING HERE SHE LIVES [place] AND MIGHT BE ABLE TO PROVIDE MORE INFORMATION
[2020-04-24 19:50] VITALS: BP 119/74
[2020-04-24 19:55] VITALS: BP 121/58
[2020-04-24 20:11] VITALS: BP 128/61
[2020-04-24 21:10] VITALS: BP 107/80
--- NOTE | 2020-04-24 23:44 | NUR ---
PT WAS A NEW ADMIT THIS SHIFT. ADMISSION COMPLETED BY [facility]. PT IS ALERT AND ORIENTED WITH SOME FORGETFULNESS. SHE IS COOPERATIVE WITH CARES.C/O MEL HIP PAIN AND MORE ON THE LEFT HIP. GIVEN TYLENOL SO FAR WITH RELIEF. PT IS AFEBRILE. IVF STARTED.ORAL INTAKE ALSO ENCOURAGED.NO EDEMA. DENIES COUGH OR SOA. SMALL OPENING TO SACCRUM, PICTURES TAKES AND FOAM DRSG APPLIED.SCDS APPLIED. CALL LIGHT WITH REACH.WILL CONTINUE WITH POC TILL EOS.
[2020-04-25 03:45] VITALS: BP 108/42
[2020-04-25 07:14] VITALS: BP 116/51
--- NOTE | 2020-04-25 09:10 | EKG ---
[facility] [place] [address] ELECTROCARDIOGRAM REPORT Name: CHAPARRITAMARITOEUN PEDRO Room #: 437-P ADM IN M.R.#: [id number] Admission: 04/24/20 Attend Phys: Jabier Villa MD Discharge: Date of : 30 Report #: [id number] THIS REPORT FOR: cc: Manuelito Michaels MD, Stanley P. MD Lundgren, Craig H. 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 : 1930 Requested By: Tanner Harry Order Number: [id number] MD: Ramón Badillo Measurements Intervals [place] Rate: 121 P: 52 AK: 157 QRS: -65 QRSD: 98 T: 115 QT: 317 QTc: 450 Interpretive Statements Sinus tachycardia Left anterior fascicular block Abnormal R-wave progression, early transition LVH with secondary repolarization abnormality Baseline wander in lead(s) V3 Compared to ECG 07/24/2019 00:01:10 Heart rate has increased Electronically Signed On 04-25-2020 9:10:28 CDT by Ramón Badillo [email or web address] <ELECTRONICALLY SIGNED> By: Ramón Badillo MD, [facility] 04/25/20 0910 1638 [id number] Ramón Badillo MD, [facility] /EPI
--- NOTE | 2020-04-25 09:10 | NUR ---
ASSESSMENT: CM REVIEWED CHART AND SPOKE WITH PT AT THE BEDSIDE. PT WAS ADMITTED DUE TO WAKNESS/UTI/LEUKOCYTOSIS. PT REPORTS THAT SHE COMES FROM HOME AND LIVES ALONE IN A RANCH STYLE HOUSE. PT REPORTS SHE HAS NO STEPS SHE HAS TO USE ONCE INSIDE. PT REPORTS THAT SHE AMBULATES USING A CANE/WALKER/ AND SOMETIMES WHEELCHAIR. PT REPORTS THAT SHE HAS A GRAB BAR AND SHOWER BENCH. PT REPORTS THAT HER SON LIVES IN [place] BUT HAS A NIECE THAT LIVES IN [facility]. PT REPORTS THAT SHE HAS [employer] PRIVATE DUTY COME TO HER HOUSE 3HRS A DAY/4 DAYS A WEEK TO HELP WITH ERRANDS/COOKING/CLEANING. PT REPORTS SHE HAS BEEN TO SNF IN THE PAST AT [facility] AND HAS HAD HH BUT UNSURE THE AGENCY. PT REPORTS THAT SHE IS HOPEFUL SHE CAN RETURN HOME WITH POSSIBLE THERAPY AT DISCHARGE. PT/OT TO SEE PATIENT. CM WILL CONTINUE TO FOLLOW TO ASSIST NEEDED.
--- NOTE | 2020-04-25 09:11 | EKG ---
[facility] [place] [address] ELECTROCARDIOGRAM REPORT Name: MARITO CHEATHAM WILLIS Room #: 437-P ADM IN M.R.#: [id number] Admission: 04/24/20 Attend Phys: Jabier Villa MD Discharge: Date of : 30 Report #: [id number] THIS REPORT FOR: cc: Manuelito Michaels MD, Stanley P. MD Lundgren, Craig H. 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 : 1930 Requested By: Jabier Villa Order Number: [id number] MD: Ramón Badillo Measurements Intervals [place] Rate: 119 P: 64 HI: 157 QRS: -65 QRSD: 100 T: 111 QT: 309 QTc: 435 Interpretive Statements Sinus tachycardia Atrial premature complex Left anterior fascicular block Abnormal R-wave progression, early transition LVH with secondary repolarization abnormality Compared to ECG 04/24/2020 16:38:16 Atrial premature complex(es) now present Electronically Signed On 04-25-2020 9:11:38 CDT by Ramón Badillo [email or web address] <ELECTRONICALLY SIGNED> By: Ramón Badillo MD, [facility] 04/25/20 0911 1646 164 Ramón Badillo MD, [facility] /EPI
--- NOTE | 2020-04-25 11:33 | NUR ---
Assumed care of pt at 0700. Pt alert but forgetful at times. Small pressure wound on sacrum. Picture in the chart. Wound care consulted. Dr Michaels is PCP. Was called and notified that pt is in the hospital. States hospitalist doctor can continue care on patient. Pain controlled with prn pain meds. Hospitalist notified about restarting all patient's home meds. IVF and IV antibiotics infusing. Fall precautions in place.
--- NOTE | 2020-04-25 12:49 | NUR ---
WOUND CONSULT; THIS PATIENT SACRUM/COCCYX WOUND WAS ASSESSED. THE WOUND IS DIME SIZED. HAS SOME FIBRINOUS NON VIABLE TISSUE IN THE WOUND BED. NO S/S OF INFECTION OTHER THAN TENDERNESS. SMALL AMOUT OF SEROSANGUINOUS DRAINAGE. RECOMMENDATIONS; A LOW AIR LOSS PUMP THERAHONEY/BORDER FOAM CHANGE M/W/F PRN WITH Q2H TURNING AT A MINIMUM DISCUSSED WITH CARLOS MANUEL
[2020-04-25 16:05] VITALS: BP 136/98
[2020-04-25 20:01] VITALS: BP 127/45
--- NOTE | 2020-04-26 04:00 | NUR ---
PT BEEN RESTLESS MOST OF THE NIGHT. TRAMADOL GIVEN FOR LLE PAIN. PATIENT USES BED KING WELL BEING INCONTINENT. LOOSE BM X2 IN THE NOC.CONTINUES ON IVF WELL IV ABTS. AFEBRILE. NO SOA OR COUGH NOTED. FOAM DRG IN PLACE TO SACCRUM.
[2020-04-26 04:16] VITALS: BP 121/47
[2020-04-26 06:07] LABS: MCH 33.8 pg (26.0-34.0); MCHC 33.5 g/dL (28.0-37.0); RBC 3.16 mil/uL (4.20-5.00); RDW 12.7 % (10.5-14.5); WBC 18.6 thou/uL (4.0-11.0)
[2020-04-26 06:08] LABS: HEMOGLOBIN 10.7 gm/dL (12.0-15.0)
[2020-04-26 06:20] LABS: CALCIUM 8.1 mg/dL (8.5-10.1); CREATININE 0.6 mg/dL (0.6-1.0); POTASSIUM 3.1 mmol/L (3.5-5.1)
[2020-04-26 07:45] VITALS: BP 141/50
--- NOTE | 2020-04-26 12:22 | NUR ---
Assumed care of pt at 0700. Pt a&ox4. Pain controlled with prn pain meds. Viral dressing c/d/i. Pt will discharge home. No home health. Family at bedside. Prescription handed to pt.
--- NOTE | 2020-04-26 15:24 | NUR ---
Assumed care of pt at 0700. pt c/o left leg pain. Prn pain meds administered. Pt states she takes tramadol q4h prn at home instead of q6h prn at the hospital. Provider notified. Per provider, order not to be changed. Dressing on sacrum c/d/i. Fluids discontinued. Call light within reach. Fall precautions in place. Will continue to monitor.
[2020-04-26 16:37] VITALS: BP 120/59
[2020-04-26 20:00] VITALS: BP 124/74
--- NOTE | 2020-04-27 03:06 | NUR ---
PT LYING IN BED. VOIDING PER BEDPAN WITH SOME INCONTINENCE. TRAMADOL PROVIDING PAIN RELIEF. RESTING COMFORTABLY. NO NEEDS VOICED. CALL LIGHT WITHIN REACH. FREQUENT OBSERVATION.
[2020-04-27 03:50] VITALS: BP 134/79
[2020-04-27 08:03] LABS: HEMATOCRIT 36.5 % (37.0-47.0); HEMOGLOBIN 12.5 gm/dL (12.0-15.0); MCH 34.3 pg (26.0-34.0); MCHC 34.3 g/dL (28.0-37.0); MCV 99.9 fL (80.0-100.0); RBC 3.66 mil/uL (4.20-5.00); RDW 12.8 % (10.5-14.5); WBC 10.6 thou/uL (4.0-11.0)
[2020-04-27 09:34] VITALS: BP 144/74
[2020-04-27 16:30] VITALS: BP 138/51
--- NOTE | 2020-04-27 17:00 | NUR ---
PT IS A&O TO SELF, VSS, CONFUSED, INCONTINENT AT TIMES. PT STATES WHEN SHE IS IN PAIN, PRN TRAMADOL ADMINISTERED FOR PAIN, DRESSED WOUND ON SACRUM. FALL PRECAUTIONS IN PLACE, WILL CONTINUE TO MONITOR.
[2020-04-27 19:55] VITALS: BP 133/67
--- NOTE | 2020-04-28 02:03 | NUR ---
PT WAS CONFUSED UPON ASSESSMENT. SHE THOUGHT SHE WAS AT HER HOUSE. PT GIVEN TRAMADOL FOR THIGH PAIN. SHE IS INCONTINENT OF BLADDER. PT FAVORS LYING ON RIGHT SIDE, REPOSITIONED A LITTLE BIT BUT SHE MOVES SELF AROUND IN BED. FOAM DRSG RE-APPLIED TO SACCRUM. PT REFUSES SCDS AT TIMES.SHE SWALLOWS MEDS OKAY.AFEBRILE.FALL PREC IN PLACE.
--- NOTE | 2020-04-28 10:04 | NUR ---
WOUND CARE F/U ALERT BUT SOME CONFUSION PRESENT, COOPERATIVE, WOUND SACRAL AREA HEALING, NO S/S INFECTION, SCANT NONVIABLE YELLOWISH TISSUE IN CENTER OF WOUND, NO ERYTHEMA, LOW AIR LOSS PUMP ON BED, SEE PROCESS INTERVENTION FOR WOUND DETAILS RECOMMENDATIONS CONT POC W/ THERAHONEY AND BORDER FOAM DRSG M/W/F AND PRN, CONT LOW AIR LOSS PUMP TO BED, ENCOURAGE TURNING, OFF LOADING, PRESSURE RELIEF ANIMAL SURGEON AWARE
[2020-04-28 10:27] VITALS: BP 146/68
[2020-04-28 13:36] VITALS: BP 146/68
--- NOTE | 2020-04-28 14:11 | NUR ---
PT IS A&OX3, VSS, BEDREST, INCONTINENT TO BLADDER, NO BOWEL TODAY. PT PAIN MANAGED WITH TRAMIDOL AND BREAKTHROUGH PAIN MANAGED WITH TYLENOL. WOUND ON SACRUM DRESSED WITH 3X3 OPTIFOAM. PRIOR PLAN WAS TO D/C PT TO SNF, HOWEVER PT REFUSED AND IS ADAMANT TO GO HOME. PT WILL BE D/C'D TO HOME/. PT SON CALLED WITH QUESTIONS FOR CW. CM WORKING ON PROVIDING MOW AND RIDE FOR PT. FALL PRECAUTIONS IN PLACE, WILL CONTINUE TO MONITOR.
--- NOTE | 2020-04-28 14:36 | NUR ---
ON-GOING ASSESSMENT: CM REVIEWED CHART AND SPOKE WITH ATTENDING. HE STATES PATIENT IS STABLE FOR DISCHARGE TO 5N/SNF. CM SPOKE WITH [facility] WHO STATES THEY DO NOT HAVE A BED FOR PATIENT. CM SPOKE WITH PATIENT ABOUT POSSIBLE SNF OTHER ACUTE REHAB OPTIONS AND PT STATING SHE IS NOT WANTING TO GO TO ANOTHER FACILITY AND WANTS TO RETURN HOME. CM HIGHLY ENCOURAGED PATIENT ON SNF AND RECOMMENDATIONS PER MD/THERAPIES/TEAM AT [facility] FOR SNF. PT CONTINUES TO REFUSE STATING DUE TO THE PANDEMIC SHE FEELS SHE IS BETTER OFF AT HOME AND HAS HER LIFE ALERT AT HOME [employer] [employer] PRIVATE DUTY THAT COMES 4DAYS/WK 3 HOURS/DAY. CM DISCUSSED RECOMMENDATION FOR MORE CARE PRIOR TO DISCHARGE AND PT STATING SHE WILL NOT AGREE. CM NOTIFIED ATTENDING. PLANS ARE FOR PATIENT TO RETURN HOME WITH HH AND HER CONTINUED PRIVATE DUTY. PT HAS NO PREFERENCE OF HH COMPANY. [facility]. CM ALSO SPOKE WITH SPORTS JOURNALIST AND RECOMMENDATION FOR MEAL ASSITANCE. CM PROVIDED PATIENT WITH SENIOR BLUE BOOK AND CONTACT FOR MEALS ON WHEELS. CM ALSO SPOKE WITH PATIENTS SON BALDOMERO TO UPDATE ON INFORMATION AND HE IS OK WITH PLAN FOR HER TO RETURN HOME WITH . CM NOTIFIED HOME [facility] OF PATIENTS DISCHARGE LIKELY LATER TODAY AND THEY REPORT SHE IS ON THEIR SCHEDULE FOR TOMORROW. CM WILL ARRANGE FOR PATIENT TO HAVE TRANSPORTATION HOME ONCE ORDERS ARE IN. CM WILL CONTINUE TO FOLLOW.
[2020-04-28 18:19] VITALS: BP 124/78
[2020-04-28 20:37] VITALS: BP 124/60
--- NOTE | 2020-04-29 01:50 | NUR ---
ASSESSMENT COMPETED. PT MORE ALERT UPON ASSESSMENT. COOPERATIVE AND PLEASANT. SHE ROLLED WELL IN BED SKIN WAS BEING ASSESSED AND PERICARE PROVIDED. SACCRAL WOUND WITH FOAM DRSG INTACT. PT ASKED FOR A BEDPAN BUT WAS ALSO INCONTINENT. NO EDEMA. KATERINA MATTRESS. SWALLOWS MEDS OKAY. SHE C/O LEFT THIGH PAIN-MANAGED BY PRN TYLENOL AND TRAMADOL.IV REMAINS TO [facility], . DAY SHIFT RN STATED SPOKE TO PATIENT'S SON AND UPDATED ON STATUS.FALL PREC IN PLACE. PT IS NOT IMPULSIVE. SHE CALLS WITH NEEDS. WILL CONTINUE WITH POC TILL EOS..
[2020-04-29 07:49] VITALS: BP 119/69
--- NOTE | 2020-04-29 09:01 | NUR ---
ON-GOING ASSESSMENT: CM REVIEWED CHART. PHYSICAL THERAPY MET WITH PATIENT LATE AFTERNOON AND PATIENT HAD A HARD TIME WITH THERAPY DUE TO PAIN/FATIGUE. CM MET WITH PATIENT AND DISCUSSED CONCERN OF HER GOING HOME SINCE SHE LIVES ALONE. PT STATES SHE IS NOW AGREEABLE FOR REHAB IF SHE CAN GO TO [facility] WHERE SHE HAS BEEN IN THE PAST. CM NOTIFIED LIAS[facility] AT [facility] AND FAXED REFERRAL. CM NOTIFIED ATTENDING THAT PATIENT IS NOW AGREEABLE FOR POST ACUTE CARE. PATIENT HAS NOT HAD A COVID TEST YET AND CM NOTIFIED ATTENDING. CM SPOKE WITH [facility]AS[facility] AT [facility] WHO STATES THEY DO NOT REQUIRE ONE PRIOR TO ADMISSION. ORDERED WAS PLACED FOR COVID AND WILL CONTINUE IF ACUTE REHAB IF PATIENT IS UNABLE TO GO TO [facility] ANOTHER FACILITY MAY NEED IT PRIOR TO ADMISSION. CM CONTACTED PATIENTS SON TO UPDATE HIM AND HE IS AGREEABLE WITH PLAN. CM ALSO CONTACTED PATIENTS PRIVATE DUTY [facility] AND SPOKE WITH NATAN TO UPDATE HER. CM WILL CONTINUE TO FOLLOW AND AWAIT FURTHER INPUT FROM [facility] IF THEY CAN ACCEPT THEY WILL NEED TO SEEK INSURANCE AUTH.
--- NOTE | 2020-04-29 15:19 | NUR ---
Assumed care of pt at 0700. Pt alert with periods of confusion. Pain controlled with prn pain meds. Sacrum pressure wound dressing changed by wound care nurse. Awaiting insurance auth for SNF. Fall precautions in place. Will continue to monitor.
[2020-04-29 15:58] VITALS: BP 128/70
[2020-04-29 20:16] VITALS: BP 126/72
--- NOTE | 2020-04-30 01:59 | NUR ---
PT IS A LITTLE CONFUSED. SHE HAS BEEN INCONTINENT OF BLADDER. PT FAVORS LAYING ON RIGHT SIDE DUE TO L THIGH PAIN. AFEBRILE. GIVEN TYLENOL AND TRAMADOL FOR PAIN BUT CONTINUES TO HAVE PAIN. LIDODERM PATCH ADDED AND TYLENOL CHANGED TO Q4HRS.FALL PREC IN PLACE . WILL CONTINUE WITH POC TILL EOS.
[2020-04-30 08:00] VITALS: BP 112/64
--- NOTE | 2020-04-30 08:11 | NUR ---
PT RESTING IN BED PT IS HARD OF HEARING AND IS GRUMPY THIS AM. PT ALERT XS 1-2 STATES IS READY TO GO TO [facility]. WILL CHECK WITH CASE MANAGEMENT. PT IS FORGETFUL.
--- NOTE | 2020-04-30 11:07 | NUR ---
SACRAL WOUND PICTURE TAKEN ALSO MEAUSUREMENTS TAKEN PUT IN PATIENT'S CHART.
--- NOTE | 2020-04-30 11:08 | NUR ---
WOUND CARE F/U ASSESSED SACRAL WOUND W/ ELECTRICIAN ELEVATOR MAINTENANCE MARITO, WOUND HEALING, NO S/S INFECTION, MORE VIABLE PINK TISSUE PRESENT IN CENTER OF WOUND, REMAINS ON LOW AIR LOSS PUMP TO MED, COOPERATIVE, ENCOURAGED TO TURN, OFF LOADING, PHOTO TAKEN, SEE PROCESS INTERVENTION FOR WOUND DETAILS RECOMMENDATIONS CONT THERAHONEY TO WOUND, COVER W/ BORDER FOAM, M/W/F AND PRN, CONT PRESSURE RELIEF MEASURES, OFF LOADING, ELECTRICIAN ELEVATOR MAINTENANCE AWARE
[2020-04-30 11:26] VITALS: BP 112/64
--- NOTE | 2020-04-30 14:55 | NUR ---
on-going assessment: CM WAS NOTIFIED BY DEZ AT [facility] THAT PATIENT IS DENIED FOR ACUTE REHAB AND INSURANCE IS RECOMMENDING A LOWER LEVEL OF CARE. AN OPTIONAL PEER TO PEER CAN BE DONE FOR ACUTE REHAB BY CALLING [phone] REF#[id number]. CM NOTIFIED ATTENDING THAT PATIENT IS DENIED FOR ACUTE REHAB. CM ALSO SPOKE WITH PATIENT ABOUT DENIAL FOR [facility]. PT STATING SHE IS THE ONLY PLACE SHE WANTED TO GO AND DOES NOT WANT TO GO TO A SNF. PT HAS BEEN TO [facility], [facility], AND [facility] IN THE PAST AND SHE REPORTS SHE DID NOT LIKE THEM. CM DISCUSSED CONCERN ABOUT HER BEING AT HOME AND HER FEELING WEAK. AFTER MUCH DISCUSSION PT IS AGREEABLE FOR SNF. CM PROVIDED PATIENT WITH A LIST OF SNF THAT ARE IN NETWORK WITH [facility]. PT REPORTS SHE HAD A FRIEND BEFORE WHO WENT TO [facility] AND WANTED A REFERRAL THERE. CM NOTIFIED VIDEO SYSTEM REPAIRER TO PLEASE SENT REFERRAL. CM UPDATED ATTENDING.
[2020-04-30 14:56] LABS: CALCIUM 9.3 mg/dL (8.5-10.1); CREATININE 0.7 mg/dL (0.6-1.0); MAGNESIUM 1.9 mg/dL (1.8-2.4); POTASSIUM 5.1 mmol/L (3.5-5.1)
--- NOTE | 2020-04-30 16:05 | NUR ---
FAXED REFERRAL TO [facility] SPOKE WITH YVES IN ADM SHE RECEIVED REFERRAL AND WILL REVIEW. DP TO FOLLOW.
[2020-04-30 20:28] VITALS: BP 124/86
--- NOTE | 2020-04-30 20:50 | NUR ---
1900 ASSUMED CARE OF PT AFTER BEDSIDE REPORT, PT ALERT AND ANSWERING QUESTIONS APPROPRIATELY, AFFECT APPROPRIATE TO PLEASANT MOOD. 2044 BASELINE ASSESSMENT COMPLETED, PT RESTING IN BED WITH NO COMPLAINTS AT THIS TIME, FALL PRECAUTIONS IN PLACE WILL CONTINUE TO MONITOR, WILL COMPLETE WOUND CARE PRN THIS SHIFT
[2020-04-30 21:00] VITALS: BP 158/88
[2020-05-01 04:29] VITALS: BP 132/62
[2020-05-01 07:40] VITALS: BP 137/67
--- NOTE | 2020-05-01 11:42 | NUR ---
ON-GOING ASSESSMENT: CM REVIEWED CHART AND SPOKE WITH PATIENT. PT HAS BEEN ACCEPTED TO [facility] TODAY. PT IS AGREEABLE. CM ALSO NOTIFIED PATIENTS SON BALDOMERO AND NOTIFIED HIM OF THE NUMBER FOR [facility] AND HE IS AGREEABLE. CM NOTIFIED ATTENDING THAT PATIENT IS ACCEPTED AND WE HAVE INSURANCE AUTH TO SEND HER TODAY. CM NOTIFIED PNEUMATIC SYSTEM CONVEYOR OPERATOR AND CHART COPY WAS ORDERED. CM PROVIDED BEDSIDE RN THE NUMBER FOR REPORT. TRANSPORTATION HAS BEEN ARRANGED FOR 1200. CM NOTIFIED ATTENDING AND BESIDE RN WELL PT AND HER SON. D/C ORDERS FAXED TO [facility] AND CM NOTIFIED YVES IN ADMISSIONS. CM ALSO NOTIFIED PATIENTS HOME [employer] [facility] WHERE PATIENT IS GOING AND PT HAS ALSO BEEN IN CONTACT WITH THEM. NO FURTHER NEEDS FROM CM PRIOR TO DISCHARGE.
[2020-05-01] MEDS ORDERED: PEPCID20 MG PO ×2 (11:43)
[2020-05-01] MEDS ORDERED: LIDOPATCH1 EACH TRANSDERM ×2 (11:43)
--- NOTE | 2020-05-01 13:14 | NUR ---
PT IS A&OX1 SELF, VSS, INCONTINENT TO BOWEL AND BLADDER. PT TOLERATES MEDS AND MEALS APPROPRIATELY. PAIN IN LEFT LOWER EXTREMITY, PT RECEIVED PAIN MED 0950, IV REMOVED, PT DRESSED AND DISCHARGED TO TRANSPORT. REPORT GIVEN TO [facility].
[2020-05-01 18:33] LABS: GLYCOHEMOGLOBIN (HGB A1C) 5.7
[2020-05-02] MEDS ORDERED: VITAMIN C500 M1 PO (03:04)
[2020-05-02] MEDS ORDERED: SUPER THERAVIT1 EACH PO (03:05)
== END 2020-05-01 15:25 | DRG 871 ==
LOC: ER 16:24 → EROBS 19:27 → 4S 19:27
PROVIDERS: Emergency Medicine; Internal Medicine; ADMIT Hospitalist; ATTEND Hospitalist
DX: A41.9 Sepsis, unspecified organism (principal); E43 Unspecified severe protein-calorie malnutrition; G92 Toxic encephalopathy; N39.0 Urinary tract infection, site not specified; R65.20 Severe sepsis without septic shock; Z20.828 Contact with and (suspected) exposure to other viral communicable diseases; M19.90 Unspecified osteoarthritis, unspecified site; R10.819 Abdominal tenderness, unspecified site; G89.29 Other chronic pain; M54.9 Dorsalgia, unspecified; I50.9 Heart failure, unspecified; I48.91 Unspecified atrial fibrillation; M16.0 Bilateral primary osteoarthritis of hip; D72.829 Elevated white blood cell count, unspecified; M62.84 Sarcopenia; R63.4 Abnormal weight loss; K59.00 Constipation, unspecified; G47.00 Insomnia, unspecified; F03.90 Unspecified dementia, unspecified severity, without behavioral disturbance, psychotic disturbance, mood disturbance, and anxiety; Z90.710 Acquired absence of both cervix and uterus; Z85.3 Personal history of malignant neoplasm of breast; Z90.13 Acquired absence of bilateral breasts and nipples; Z88.1 Allergy status to other antibiotic agents; Z88.8 Allergy status to other drugs, medicaments and biological substances; Z82.49 Family history of ischemic heart disease and other diseases of the circulatory system; Z68.20 Body mass index [BMI] 20.0-20.9, adult
CPT/HCPCS: 10195

== ENCOUNTER 2020-05-02 02:57 | Emergency (ER) | payer OTHER ==
[~2020-05-02] VITALS: Ht 160 cm; Wt 54.9 kg
[~2020-05-02 02:57] MED LIST changes: +PEPCID20 MG PO
[2020-05-02] MEDS ORDERED: VITAMIN C500 M1 PO (03:04)
[2020-05-02] MEDS ORDERED: SUPER THERAVIT1 EACH PO (03:05)
[2020-05-02 06:21] VITALS: BP 151/77
== END 2020-05-02 05:54 | disposition home or self-care (01) ==
LOC: ER 02:57
DX: G89.29 Other chronic pain (principal); M79.662 Pain in left lower leg; M19.90 Unspecified osteoarthritis, unspecified site; Z88.1 Allergy status to other antibiotic agents; Z88.8 Allergy status to other drugs, medicaments and biological substances; Z79.899 Other long term (current) drug therapy; Z98.890 Other specified postprocedural states; Z90.710 Acquired absence of both cervix and uterus; Z85.3 Personal history of malignant neoplasm of breast